=== PATIENT | female | born 1975 | race Caucasian/White ===

== ENCOUNTER 2016-08-06 13:45 | Outpatient (RCR) | payer MEDICAID, OTHER ==
[~2016-08-06 13:45] MED LIST: ALBUTEROL INH; Albuterol NEB; CONC18TA OR; EPIP0.3I IM; [UNRECOGNIZED DRUG - OTHER]
== END 2016-08-10 ==
LOC: M CR 13:45
PROVIDERS: ATTEND Internal Medicine Cardiovascular Disease
DX: Z95.5 Presence of coronary angioplasty implant and graft (principal)

== ENCOUNTER → 2016-09-10 | Outpatient (RCR) | payer MEDICAID, OTHER | LOC: M CR 08-27 15:27 | PROVIDERS: ATTEND Internal Medicine Cardiovascular Disease | DX: Z51.89 Encounter for other specified aftercare (principal); Z95.5 Presence of coronary angioplasty implant and graft ==

== ENCOUNTER 2016-09-22 10:00 | Outpatient (RCR) | payer OTHER | END 2016-10-10 | LOC: M CR 10:00 | PROVIDERS: ATTEND Internal Medicine Cardiovascular Disease | DX: Z98.61 Coronary angioplasty status (principal) ==

== ENCOUNTER 2016-10-11 08:28 | Outpatient (RCR) | payer OTHER | END 2016-11-10 | LOC: M CR 08:28 | PROVIDERS: ATTEND Internal Medicine Cardiovascular Disease | DX: Z98.61 Coronary angioplasty status (principal) ==

== ENCOUNTER 2017-02-04 08:47 | Outpatient (RCR) | payer OTHER | END 2017-02-10 | LOC: M CR 08:47 | PROVIDERS: ATTEND Internal Medicine Cardiovascular Disease | DX: Z95.1 Presence of aortocoronary bypass graft (principal) ==

== ENCOUNTER 2017-03-11 08:37 | Outpatient (RCR) | payer OTHER | END 2017-03-12 | LOC: M CR 08:37 | PROVIDERS: ATTEND Internal Medicine Cardiovascular Disease | DX: Z95.1 Presence of aortocoronary bypass graft (principal) ==

== ENCOUNTER 2017-04-13 08:45 | Outpatient (RCR) | payer OTHER ==
[2017-04-28] MEDS ORDERED: LISI2.5T3 (09:34)
[2017-04-28] MEDS ORDERED: ALPR0.25 (09:34)
[2017-04-28] MEDS ORDERED: GLIM1TAB (09:34)
[2017-04-28] MEDS ORDERED: DOCQ100C (09:34)
[2017-04-28] MEDS ORDERED: ONDA4TAB5 (09:34)
[2017-04-28] MEDS ORDERED: FERR32TA (09:34)
[2017-04-28] MEDS ORDERED: FAMO40TA3 (09:34)
[2017-04-28] MEDS ORDERED: GABA-282 (09:34)
[2017-04-28] MEDS ORDERED: ATOR40TA75 (09:34)
[2017-04-28] MEDS ORDERED: CLOP75TA2 (09:34)
[2017-04-28] MEDS ORDERED: MECL-68 (09:34)
[2017-04-28] MEDS ORDERED: METO1TAB87 (09:34)
[2017-04-28] MEDS ORDERED: BREO1INH3 INH (09:34)
[2017-04-28] MEDS ORDERED: FURO40TA2 (09:34)
[2017-04-28] MEDS ORDERED: NORCOTAB PO (11:05)
== END 2017-05-12 ==
LOC: M CR 08:45
PROVIDERS: ATTEND Internal Medicine Cardiovascular Disease
DX: Z95.1 Presence of aortocoronary bypass graft (principal)

== ENCOUNTER 2017-04-28 09:21 | Emergency (ER) | payer OTHER ==
[~2017-04-28] VITALS: Ht 154.9 cm; Wt 72.9 kg
[2017-04-28] MEDS ORDERED: GLIM1TAB (09:34)
[2017-04-28] MEDS ORDERED: BREO1INH3 INH (09:34)
[2017-04-28] MEDS ORDERED: ATOR40TA75 (09:34)
[2017-04-28] MEDS ORDERED: FURO40TA2 (09:34)
[2017-04-28] MEDS ORDERED: ONDA4TAB5 (09:34)
[2017-04-28] MEDS ORDERED: FERR32TA (09:34)
[2017-04-28] MEDS ORDERED: MECL-68 (09:34)
[2017-04-28] MEDS ORDERED: METO1TAB87 (09:34)
[2017-04-28] MEDS ORDERED: LISI2.5T3 (09:34)
[2017-04-28] MEDS ORDERED: GABA-282 (09:34)
[2017-04-28] MEDS ORDERED: CLOP75TA2 (09:34)
[2017-04-28] MEDS ORDERED: DOCQ100C (09:34)
[2017-04-28] MEDS ORDERED: FAMO40TA3 (09:34)
[2017-04-28] MEDS ORDERED: ALPR0.25 (09:34)
--- NOTE | 2017-04-28 10:56 | REP ---
Clinical: Trauma. Technique: AP, lateral, bilateral oblique views. Findings: The carpal bones, surrounding osseous structures, soft tissues, and joint spaces are normal. There is no evidence for acute fracture or dislocation. No subcutaneous emphysema or radiodense foreign body. Impression: Normal wrist series. No acute fracture or dislocation Signed by Nikolai Peralta MD 04/28/2017 10:45 A
--- NOTE | 2017-04-28 10:56 | REP ---
Clinical: Trauma. Technique: AP, lateral, bilateral oblique views left hand . Findings: The osseous structures and joint spaces are intact and normal. There is no evidence for acute fracture or dislocation. Surrounding soft tissues are unremarkable. No subcutaneous emphysema or radiodense foreign body. Impression: Normal left hand series . No acute fracture or dislocation. Signed by Nikolai Peralta MD 04/28/2017 10:47 A
--- NOTE | 2017-04-28 10:56 | REP ---
Clinical: Trauma . Technique: AP, lateral, bilateral oblique, and coned-down views. Findings: Alignment and lordosis is maintained. The vertebral bodies including transverse process and spinous processes are intact and normal. There is no evidence for acute fracture / compression injury or subluxation. No evidence for spondylolysis or spondylolisthesis. Impression: Normal, age-appropriate lumbosacral spine radiograph series. No acute fracture / compression injury or subluxation. Signed by Nikolai Peralta MD 04/28/2017 10:46 A
[2017-04-28] MEDS ORDERED: NORCOTAB PO (11:05)
[2017-04-28 11:16] VITALS: BP 116/68
== END 2017-04-28 11:10 | disposition home or self-care (01) ==
LOC: M ED 09:21
DX: S30.0XXA Contusion of lower back and pelvis, initial encounter (principal); S60.212A Contusion of left wrist, initial encounter; W10.8XXA Fall (on) (from) other stairs and steps, initial encounter; Y92.018 Other place in single-family (private) house as the place of occurrence of the external cause; Y93.89 Activity, other specified; Y99.8 Other external cause status; J45.909 Unspecified asthma, uncomplicated; F90.9 Attention-deficit hyperactivity disorder, unspecified type; I25.2 Old myocardial infarction; Z86.73 Personal history of transient ischemic attack (TIA), and cerebral infarction without residual deficits; Z79.899 Other long term (current) drug therapy; Z79.51 Long term (current) use of inhaled steroids; Z88.5 Allergy status to narcotic agent; Z88.8 Allergy status to other drugs, medicaments and biological substances; Z87.891 Personal history of nicotine dependence

== ENCOUNTER 2018-03-13 14:04 | Emergency (ER) | payer OTHER ==
[2018-03-13 16:05] LABS: BASO % 0.4 % (0.0-1.0); EOS # 0.4 10^3/uL (0.0-0.50); EOS % 4.5 % (0.0-3.0); HEMATOCRIT 40.6 % (36.0-47.0); HEMOGLOBIN 14.5 g/dl (12.0-15.5); IMMATURE GRANULOCYTE % 0.3 % (0-3.0); LYMPH # 2.1 10^3/uL (1.5-4.5); LYMPH % 23.1 % (24.0-44.0); MEAN CORPUSCULAR HEMOGLOBIN 30.3 pg (27.0-33.0); MEAN CORPUSCULAR HGB CONC 35.7 g/dl (32.0-36.5); MEAN CORPUSCULAR VOLUME 84.8 fl (80.0-96.0); MONO # 0.3 10^3/uL (0.0-0.8); MONO % 3.1 % (0.0-5.0); NEUTROPHILS # 6.2 10^3/uL (1.8-7.7); NEUTROPHILS % 68.6 % (36.0-66.0); PLATELET COUNT, AUTOMATED 202 10^3/uL (150-450); RED BLOOD COUNT 4.79 10^6/uL (4.00-5.40); RED CELL DISTRIBUTION WIDTH 11.8 % (11.5-14.5)
[2018-03-13 16:20] LABS: ESTIMATED AVERAGE GLUCOSE 220 MG/DL (60-110); HEMOGLOBIN A1c 9.3 %
[2018-03-13 16:42] LABS: ALBUMIN 3.8 GM/DL (3.2-5.2); ALBUMIN/GLOBULIN RATIO 1.27 (1.00-1.93); ALKALINE PHOSPHATASE 160 U/L (45-117); ALT/SGPT 17 U/L (12-78); ANION GAP 7 MEQ/L (8-16); AST/SGOT 9 U/L (7-37); BILIRUBIN,DIRECT 0.1 MG/DL (0.0-0.2); BILIRUBIN,TOTAL 0.4 MG/DL (0.2-1.0); BLOOD UREA NITROGEN 11 MG/DL (7-18); CALCIUM LEVEL 9.1 MG/DL (8.5-10.1); CARBON DIOXIDE LEVEL 33 MEQ/L (21-32); CHLORIDE LEVEL 97 MEQ/L (98-107); CK-MB VALUE MASS < 1.0 NG/ML (<3.6); CPK CREATINE PHOSPHOKINASE 37 U/L (26-192); CREATININE FOR GFR 0.86 MG/DL (0.55-1.30); FREE T4 0.99 NG/DL (0.76-1.46); GLOMERULAR FILTRATION RATE > 60.0 (>58); GLUCOSE, FASTING 321 MG/DL (70-100); SODIUM LEVEL 137 MEQ/L (136-145); TOTAL PROTEIN 6.8 GM/DL (6.4-8.2); TROPONIN I < 0.02 NG/ML (< 0.10)
[2018-03-13] MEDS: HumuLIN R (REGULAR) INSULIN (NovoLIN R) **100U/ML** PER UNIT IV (17:00)
[2018-03-13 17:56] LABS: KETONE, URINE AUTO RFX TRACE mg/dL (NEGATIVE); LEUKOCYTE ESTERASE UR AUTO RFX NEGATIVE (NEGATIVE); NITRITE, URINE AUTO RFX NEGATIVE (NEGATIVE); RBC, URINE AUTO RFX 2 /HPF (0-3); SPECIFIC GRAVITY UR AUTO RFX 1.023 (1.002-1.035); SQUAM EPITHELIAL CELL UR AURFX 1 /HPF (0-6); WBC, URINE AUTO RFX 0 /HPF (0-3)
[2018-03-13 18:57] LABS: BEDSIDE GLUCOSE 141 MG/DL (70-105)
[2018-03-17 15:54] LABS: BEDSIDE GLUCOSE 376 MG/DL (70-105)
== END 2018-03-13 19:34 | disposition home or self-care (01) ==
LOC: M ED 14:04
DX: E11.65 Type 2 diabetes mellitus with hyperglycemia (principal); I25.10 Atherosclerotic heart disease of native coronary artery without angina pectoris; J45.909 Unspecified asthma, uncomplicated; F90.9 Attention-deficit hyperactivity disorder, unspecified type; Z87.442 Personal history of urinary calculi; Z79.4 Long term (current) use of insulin; Z79.899 Other long term (current) drug therapy; Z88.6 Allergy status to analgesic agent; Z88.5 Allergy status to narcotic agent
CPT/HCPCS: 71046

== ENCOUNTER 2018-04-07 19:09 | Inpatient (IN) | payer OTHER ==
[2018-04-07 19:49] LABS: BASO % 0.3 % (0.0-1.0); EOS # 0.3 10^3/uL (0.0-0.50); EOS % 3.1 % (0.0-3.0); HEMATOCRIT 43.9 % (36.0-47.0); HEMOGLOBIN 15.6 g/dl (12.0-15.5); IMMATURE GRANULOCYTE % 0.3 % (0-3.0); LYMPH # 2.7 10^3/uL (1.5-4.5); MEAN CORPUSCULAR HEMOGLOBIN 29.6 pg (27.0-33.0); MEAN CORPUSCULAR HGB CONC 35.5 g/dl (32.0-36.5); MEAN CORPUSCULAR VOLUME 83.3 fl (80.0-96.0); MONO # 0.4 10^3/uL (0.0-0.8); NEUTROPHILS # 5.4 10^3/uL (1.8-7.7); NEUTROPHILS % 61.3 % (36.0-66.0); PLATELET COUNT, AUTOMATED 235 10^3/uL (150-450); RED BLOOD COUNT 5.27 10^6/uL (4.00-5.40); RED CELL DISTRIBUTION WIDTH 11.7 % (11.5-14.5); WHITE BLOOD COUNT 8.8 10^3/uL (4.0-10.0)
[2018-04-07 20:29] LABS: BEDSIDE GLUCOSE 420 MG/DL (70-105)
[2018-04-07 20:38] LABS: ALBUMIN 3.5 GM/DL (3.2-5.2); ALBUMIN/GLOBULIN RATIO 0.97 (1.00-1.93); ALKALINE PHOSPHATASE 180 U/L (45-117); ALT/SGPT 20 U/L (12-78); ANION GAP 9 MEQ/L (8-16); AST/SGOT 11 U/L (7-37); BILIRUBIN,DIRECT 0.1 MG/DL (0.0-0.2); BILIRUBIN,TOTAL 0.4 MG/DL (0.2-1.0); BLOOD UREA NITROGEN 10 MG/DL (7-18); C REACTIVE PROTEIN QUANTITATIV 1.07 MG/DL (0.00-0.30); CALCIUM LEVEL 8.6 MG/DL (8.5-10.1); CARBON DIOXIDE LEVEL 30 MEQ/L (21-32); CHLORIDE LEVEL 95 MEQ/L (98-107); CK-MB VALUE MASS < 1.0 NG/ML (<3.6); CPK CREATINE PHOSPHOKINASE 43 U/L (26-192); CREATININE FOR GFR 1.06 MG/DL (0.55-1.30); GLUCOSE, FASTING 396 MG/DL (70-100); MB/CK RELATIVE INDEX 2.33 (< OR =4); SODIUM LEVEL 134 MEQ/L (136-145); TOTAL PROTEIN 7.1 GM/DL (6.4-8.2); TROPONIN I < 0.02 NG/ML (< 0.10)
[2018-04-07 20:42] LABS: INR 0.98; PARTIAL THROMBOPLASTIN TIME 28.5 SECONDS (25.4-37.6)
[2018-04-07 21:12] LABS: ERYTHROCYTE SEDIMENTATION RATE 10 mm/hr (0-20)
[2018-04-07] MEDS: NS 1,000 ML IV (21:16)
[2018-04-07] MEDS: HumaLOG INSULIN (NovoLOG) PER UNIT SC (21:17)
[2018-04-07 22:57] LABS: BEDSIDE GLUCOSE 285 MG/DL (70-105)
[2018-04-08] MEDS: NS 1,000 ML IV (03:32)
[2018-04-08] MEDS: ALPRAZolam 0.25 MG TAB PO (03:45)
[2018-04-08] MEDS: ACETAMINOPHEN 325 MG TAB PO (03:46)
[2018-04-08 06:38] LABS: ALBUMIN 3.3 GM/DL (3.2-5.2); ALBUMIN/GLOBULIN RATIO 1.27 (1.00-1.93); ALKALINE PHOSPHATASE 146 U/L (45-117); ALT/SGPT 15 U/L (12-78); ANION GAP 7 MEQ/L (8-16); AST/SGOT 7 U/L (7-37); BILIRUBIN,TOTAL 0.4 MG/DL (0.2-1.0); BLOOD UREA NITROGEN 10 MG/DL (7-18); CALCIUM LEVEL 8.5 MG/DL (8.5-10.1); CARBON DIOXIDE LEVEL 30 MEQ/L (21-32); CHLORIDE LEVEL 104 MEQ/L (98-107); CREATININE FOR GFR 0.68 MG/DL (0.55-1.30); GLOMERULAR FILTRATION RATE > 60.0 (>58); GLUCOSE, FASTING 275 MG/DL (70-100); POTASSIUM SERUM 3.2 MEQ/L (3.5-5.1); SODIUM LEVEL 141 MEQ/L (136-145); TOTAL PROTEIN 5.9 GM/DL (6.4-8.2)
[2018-04-08] MEDS ORDERED: MECLIZINE 25 MG TABLET PO (09:00)
[2018-04-08] MEDS: DOCUSATE SODIUM 100 MG CAP PO (09:00)
[2018-04-08] MEDS: PROPARACAINE 0.5% OPHTH SOL 15ML OS (10:00)
[2018-04-08] MEDS: PHENYLEPHRINE 2.5% OPHTH SOL 2ML OS (10:00)
[2018-04-08] MEDS: TROPICAMIDE 1% OPHTH SOLN 2ML OS (10:00)
[2018-04-08] MEDS: CLOPIDOGREL 75 MG TAB PO (10:47)
[2018-04-08] MEDS: FAMOTIDINE 20 MG TAB PO (10:48)
[2018-04-08] MEDS: ATORVASTATIN 20 MG TAB PO (10:48)
[2018-04-08] MEDS: HumuLIN (NovoLIN)70/30 INSULIN INJ PER UNIT SQ ×2 (10:49→19:00)
[2018-04-08] MEDS: GABAPENTIN 300 MG CAP PO ×3 (10:49→20:10)
[2018-04-08] MEDS: POTASSIUM CHLORIDE 10 MEQ SR TABLET PO (10:51)
[2018-04-08] MEDS: ALBUTEROL SULFATE 2.5 MG/0.5 ML INH NEB SOLN NEB ×3 (11:34→23:43)
[2018-04-08] MEDS: LISINOPRIL *2.5 MG* TAB PO (12:10)
[2018-04-08 12:17] LABS: BEDSIDE GLUCOSE 417 MG/DL (70-105)
[2018-04-08 14:05] LABS: ESTIMATED AVERAGE GLUCOSE 229 MG/DL (60-110); HEMOGLOBIN A1c 9.6 %
[2018-04-08] MEDS: FIORICET TAB PO (14:30)
[2018-04-08] MEDS: HumaLOG INSULIN (NovoLOG) PER UNIT SC (14:31)
[2018-04-08 16:40] LABS: BEDSIDE GLUCOSE 283 MG/DL (70-105)
[2018-04-08] MEDS: ONDANSETRON 4MG/2ML VIAL (J2405) IV (17:34)
[2018-04-08] MEDS: MECLIZINE 12.5 MG TAB PO (17:34)
[2018-04-08] MEDS: MONTELUKAST 10 MG TAB PO (20:10)
[2018-04-09] MEDS: ALPRAZolam 0.25 MG TAB PO (00:04)
[2018-04-09 00:11] LABS: BEDSIDE GLUCOSE 255 MG/DL (70-105)
[2018-04-09] MEDS: FIORICET TAB PO ×2 (03:36→18:33)
[2018-04-09] MEDS: ALBUTEROL SULFATE 2.5 MG/0.5 ML INH NEB SOLN NEB ×3 (07:15→22:16)
[2018-04-09 07:22] LABS: BEDSIDE GLUCOSE 221 MG/DL (70-105)
[2018-04-09 07:53] LABS: BASO % 0.2 % (0.0-1.0); EOS # 0.2 10^3/uL (0.0-0.50); EOS % 3.2 % (0.0-3.0); HEMATOCRIT 36.6 % (36.0-47.0); IMMATURE GRANULOCYTE % 0.6 % (0-3.0); LYMPH # 1.9 10^3/uL (1.5-4.5); LYMPH % 30.2 % (24.0-44.0); MEAN CORPUSCULAR HEMOGLOBIN 29.7 pg (27.0-33.0); MEAN CORPUSCULAR HGB CONC 34.2 g/dl (32.0-36.5); MEAN CORPUSCULAR VOLUME 86.9 fl (80.0-96.0); MONO # 0.2 10^3/uL (0.0-0.8); MONO % 3.3 % (0.0-5.0); NEUTROPHILS # 3.9 10^3/uL (1.8-7.7); NEUTROPHILS % 62.5 % (36.0-66.0); PLATELET COUNT, AUTOMATED 160 10^3/uL (150-450); RED BLOOD COUNT 4.21 10^6/uL (4.00-5.40); RED CELL DISTRIBUTION WIDTH 11.9 % (11.5-14.5); WHITE BLOOD COUNT 6.3 10^3/uL (4.0-10.0)
[2018-04-09 08:05] LABS: HEMOGLOBIN 12.5 g/dl (12.0-15.5)
[2018-04-09 08:13] LABS: ANION GAP 7 MEQ/L (8-16); BLOOD UREA NITROGEN 8 MG/DL (7-18); CALCIUM LEVEL 8.6 MG/DL (8.5-10.1); CARBON DIOXIDE LEVEL 29 MEQ/L (21-32); CHLORIDE LEVEL 104 MEQ/L (98-107); CREATININE FOR GFR 0.75 MG/DL (0.55-1.30); GLOMERULAR FILTRATION RATE > 60.0 (>58); GLUCOSE, FASTING 248 MG/DL (70-100); POTASSIUM SERUM 3.8 MEQ/L (3.5-5.1); SODIUM LEVEL 140 MEQ/L (136-145)
[2018-04-09] MEDS: DOCUSATE SODIUM 100 MG CAP PO (09:00)
[2018-04-09] MEDS: HumuLIN (NovoLIN)70/30 INSULIN INJ PER UNIT SQ ×2 (09:43→18:29)
[2018-04-09] MEDS: ATORVASTATIN 20 MG TAB PO (09:43)
[2018-04-09] MEDS: LISINOPRIL *2.5 MG* TAB PO (09:45)
[2018-04-09] MEDS: MECLIZINE 25 MG TABLET PO ×2 (09:45→20:23)
[2018-04-09] MEDS: GABAPENTIN 300 MG CAP PO ×3 (09:45→20:23)
[2018-04-09] MEDS: FAMOTIDINE 20 MG TAB PO (09:45)
[2018-04-09] MEDS: TIOTROPIUM INHALER/CAPSULE (SPIRIVA) INH (11:16)
[2018-04-09] MEDS: SYMBICORT 80/4.5MCG INHALER 6GM INH ×2 (11:16→20:00)
[2018-04-09 12:03] LABS: BEDSIDE GLUCOSE 291 MG/DL (70-105)
[2018-04-09] MEDS ORDERED: PROHANCE 279.3MG/ML 15ML VIAL (A9576) As Ordered (13:52)
[2018-04-09 17:10] LABS: BEDSIDE GLUCOSE 217 MG/DL (70-105)
[2018-04-09] MEDS: ACETAMINOPHEN 325 MG TAB PO (18:34)
[2018-04-09] MEDS: MONTELUKAST 10 MG TAB PO (20:22)
[2018-04-10 05:56] LABS: BEDSIDE GLUCOSE 182 MG/DL (70-105)
[2018-04-10 07:02] LABS: BASO % 0.3 % (0.0-1.0); EOS # 0.2 10^3/uL (0.0-0.50); EOS % 2.7 % (0.0-3.0); HEMATOCRIT 33.1 % (36.0-47.0); HEMOGLOBIN 11.6 g/dl (12.0-15.5); IMMATURE GRANULOCYTE % 0.9 % (0-3.0); LYMPH # 1.8 10^3/uL (1.5-4.5); LYMPH % 25.2 % (24.0-44.0); MEAN CORPUSCULAR HEMOGLOBIN 29.8 pg (27.0-33.0); MEAN CORPUSCULAR VOLUME 85.1 fl (80.0-96.0); MONO # 0.3 10^3/uL (0.0-0.8); MONO % 3.5 % (0.0-5.0); NEUTROPHILS # 4.8 10^3/uL (1.8-7.7); NEUTROPHILS % 67.4 % (36.0-66.0); PLATELET COUNT, AUTOMATED 153 10^3/uL (150-450); RED BLOOD COUNT 3.89 10^6/uL (4.00-5.40); RED CELL DISTRIBUTION WIDTH 11.9 % (11.5-14.5); WHITE BLOOD COUNT 7.1 10^3/uL (4.0-10.0)
[2018-04-10 07:17] LABS: ANION GAP 6 MEQ/L (8-16); BLOOD UREA NITROGEN 12 MG/DL (7-18); CALCIUM LEVEL 8.7 MG/DL (8.5-10.1); CARBON DIOXIDE LEVEL 29 MEQ/L (21-32); CHLORIDE LEVEL 108 MEQ/L (98-107); CREATININE FOR GFR 0.64 MG/DL (0.55-1.30); GLOMERULAR FILTRATION RATE > 60.0 (>58); GLUCOSE, FASTING 166 MG/DL (70-100); POTASSIUM SERUM 3.8 MEQ/L (3.5-5.1); SODIUM LEVEL 143 MEQ/L (136-145)
[2018-04-10] MEDS: ALBUTEROL SULFATE 2.5 MG/0.5 ML INH NEB SOLN NEB ×2 (08:00→15:12)
[2018-04-10] MEDS: TIOTROPIUM INHALER/CAPSULE (SPIRIVA) INH (08:14)
[2018-04-10] MEDS: SYMBICORT 80/4.5MCG INHALER 6GM INH ×2 (08:14→20:10)
[2018-04-10] MEDS: FAMOTIDINE 20 MG TAB PO (09:01)
[2018-04-10] MEDS: DOCUSATE SODIUM 100 MG CAP PO (09:01)
[2018-04-10] MEDS: HumuLIN (NovoLIN)70/30 INSULIN INJ PER UNIT SQ ×2 (09:02→18:38)
[2018-04-10] MEDS: ATORVASTATIN 20 MG TAB PO (09:02)
[2018-04-10] MEDS: GABAPENTIN 300 MG CAP PO ×3 (09:02→20:33)
[2018-04-10] MEDS: MECLIZINE 25 MG TABLET PO ×2 (09:02→20:33)
[2018-04-10] MEDS: LISINOPRIL *2.5 MG* TAB PO (10:39)
[2018-04-10] MEDS: FIORICET TAB PO (10:42)
[2018-04-10 11:55] LABS: BEDSIDE GLUCOSE 226 MG/DL (70-105)
[2018-04-10 13:38] LABS: CSF TUBE# GLU TUBE 2; CSF TUBE# TP TUBE 2; GLUCOSE CSF 116 MG/DL (40-75); TOTAL PROTEIN,CSF 30 MG/DL (15-45)
[2018-04-10 13:41] LABS: CSF RBC < 2 10^3/uL (<2); CSF TUBE# CELL CNT TUBE 1; CSF WBC 1 /uL (0-10)
[2018-04-10 13:42] LABS: APPEARANCE, CSF CLEAR (CLEAR); COLOR, CSF COLORLESS (COLORLESS); CSF DIFF IF INDICATED? NO (NO)
[2018-04-10 16:56] LABS: BEDSIDE GLUCOSE 198 MG/DL (70-105)
[2018-04-10] MEDS: ACETAMINOPHEN 325 MG TAB PO (16:58)
[2018-04-10 17:53] LABS: BEDSIDE GLUCOSE 245 MG/DL (70-105)
[2018-04-10] MEDS: MONTELUKAST 10 MG TAB PO (20:33)
[2018-04-10] MEDS: NORTRIPTYLINE 25 MG CAP PO (20:33)
[2018-04-10 20:47] LABS: BEDSIDE GLUCOSE 261 MG/DL (70-105)
[2018-04-11] MEDS: ALPRAZolam 0.25 MG TAB PO (02:17)
[2018-04-11 07:09] LABS: BASO % 0.2 % (0.0-1.0); EOS # 0.2 10^3/uL (0.0-0.50); EOS % 2.6 % (0.0-3.0); HEMATOCRIT 32.4 % (36.0-47.0); HEMOGLOBIN 11.2 g/dl (12.0-15.5); IMMATURE GRANULOCYTE % 0.3 % (0-3.0); LYMPH # 1.7 10^3/uL (1.5-4.5); MEAN CORPUSCULAR HEMOGLOBIN 29.9 pg (27.0-33.0); MEAN CORPUSCULAR HGB CONC 34.6 g/dl (32.0-36.5); MEAN CORPUSCULAR VOLUME 86.4 fl (80.0-96.0); MONO # 0.2 10^3/uL (0.0-0.8); MONO % 3.3 % (0.0-5.0); NEUTROPHILS % 65.6 % (36.0-66.0); PLATELET COUNT, AUTOMATED 167 10^3/uL (150-450); RED BLOOD COUNT 3.75 10^6/uL (4.00-5.40); RED CELL DISTRIBUTION WIDTH 12.1 % (11.5-14.5); WHITE BLOOD COUNT 6.1 10^3/uL (4.0-10.0)
[2018-04-11 07:31] LABS: ANION GAP 7 MEQ/L (8-16); BLOOD UREA NITROGEN 11 MG/DL (7-18); CALCIUM LEVEL 8.2 MG/DL (8.5-10.1); CARBON DIOXIDE LEVEL 28 MEQ/L (21-32); CHLORIDE LEVEL 106 MEQ/L (98-107); CREATININE FOR GFR 0.69 MG/DL (0.55-1.30); GLOMERULAR FILTRATION RATE > 60.0 (>58); GLUCOSE, FASTING 132 MG/DL (70-100); POTASSIUM SERUM 3.7 MEQ/L (3.5-5.1); SODIUM LEVEL 141 MEQ/L (136-145)
[2018-04-11] MEDS: SYMBICORT 80/4.5MCG INHALER 6GM INH ×2 (07:32→20:59)
[2018-04-11] MEDS: TIOTROPIUM INHALER/CAPSULE (SPIRIVA) INH (07:34)
[2018-04-11] MEDS: ALBUTEROL SULFATE 2.5 MG/0.5 ML INH NEB SOLN NEB ×4 (07:35→23:21)
[2018-04-11] MEDS: DOCUSATE SODIUM 100 MG CAP PO (10:13)
[2018-04-11] MEDS: HumuLIN (NovoLIN)70/30 INSULIN INJ PER UNIT SQ ×2 (10:13→17:30)
[2018-04-11] MEDS: ATORVASTATIN 20 MG TAB PO (10:14)
[2018-04-11] MEDS: MECLIZINE 25 MG TABLET PO ×2 (10:14→21:21)
[2018-04-11] MEDS: FAMOTIDINE 20 MG TAB PO (10:14)
[2018-04-11] MEDS: GABAPENTIN 300 MG CAP PO ×3 (10:14→21:20)
[2018-04-11] MEDS: LISINOPRIL *2.5 MG* TAB PO (10:18)
[2018-04-11 12:00] LABS: BEDSIDE GLUCOSE 247 MG/DL (70-105)
[2018-04-11 17:12] LABS: BEDSIDE GLUCOSE 109 MG/DL (70-105)
[2018-04-11] MEDS: FIORICET TAB PO (17:24)
[2018-04-11 20:44] LABS: BEDSIDE GLUCOSE 227 MG/DL (70-105)
[2018-04-11] MEDS: MONTELUKAST 10 MG TAB PO (21:21)
[2018-04-11] MEDS: NORTRIPTYLINE 25 MG CAP PO (21:29)
[2018-04-12 00:08] LABS: BEDSIDE GLUCOSE 229 MG/DL (70-105)
[2018-04-12] MEDS: ONDANSETRON 4MG/2ML VIAL (J2405) IV ×2 (00:33→11:13)
[2018-04-12] MEDS: ACETAMINOPHEN 325 MG TAB PO ×3 (00:42→18:00)
[2018-04-12 06:58] LABS: BASO % 0.5 % (0.0-1.0); EOS # 0.3 10^3/uL (0.0-0.50); EOS % 4.4 % (0.0-3.0); HEMATOCRIT 33.7 % (36.0-47.0); HEMOGLOBIN 11.4 g/dl (12.0-15.5); IMMATURE GRANULOCYTE % 0.7 % (0-3.0); LYMPH # 1.7 10^3/uL (1.5-4.5); LYMPH % 27.2 % (24.0-44.0); MEAN CORPUSCULAR HEMOGLOBIN 29.8 pg (27.0-33.0); MEAN CORPUSCULAR HGB CONC 33.8 g/dl (32.0-36.5); MONO # 0.3 10^3/uL (0.0-0.8); MONO % 4.1 % (0.0-5.0); NEUTROPHILS # 3.8 10^3/uL (1.8-7.7); NEUTROPHILS % 63.1 % (36.0-66.0); PLATELET COUNT, AUTOMATED 158 10^3/uL (150-450); RED BLOOD COUNT 3.83 10^6/uL (4.00-5.40); RED CELL DISTRIBUTION WIDTH 12.1 % (11.5-14.5); WHITE BLOOD COUNT 6.1 10^3/uL (4.0-10.0)
[2018-04-12 07:22] LABS: ANION GAP 4 MEQ/L (8-16); BLOOD UREA NITROGEN 14 MG/DL (7-18); CALCIUM LEVEL 8.9 MG/DL (8.5-10.1); CARBON DIOXIDE LEVEL 28 MEQ/L (21-32); CHLORIDE LEVEL 107 MEQ/L (98-107); CREATININE FOR GFR 0.68 MG/DL (0.55-1.30); GLOMERULAR FILTRATION RATE > 60.0 (>58); GLUCOSE, FASTING 173 MG/DL (70-100); POTASSIUM SERUM 5.2 MEQ/L (3.5-5.1); SODIUM LEVEL 139 MEQ/L (136-145)
[2018-04-12] MEDS: ALBUTEROL SULFATE 2.5 MG/0.5 ML INH NEB SOLN NEB ×2 (08:00→14:46)
[2018-04-12] MEDS: SYMBICORT 80/4.5MCG INHALER 6GM INH ×2 (08:18→20:00)
[2018-04-12] MEDS: TIOTROPIUM INHALER/CAPSULE (SPIRIVA) INH (08:18)
[2018-04-12] MEDS: ATORVASTATIN 20 MG TAB PO (08:25)
[2018-04-12] MEDS: MECLIZINE 25 MG TABLET PO ×3 (08:25→21:30)
[2018-04-12] MEDS: GABAPENTIN 300 MG CAP PO ×3 (08:25→21:29)
[2018-04-12] MEDS: FAMOTIDINE 20 MG TAB PO (08:25)
[2018-04-12] MEDS: HumuLIN (NovoLIN)70/30 INSULIN INJ PER UNIT SQ ×2 (08:25→17:59)
[2018-04-12] MEDS: DOCUSATE SODIUM 100 MG CAP PO (08:26)
[2018-04-12] MEDS: LISINOPRIL *2.5 MG* TAB PO (11:07)
[2018-04-12 11:27] LABS: BEDSIDE GLUCOSE 209 MG/DL (70-105)
[2018-04-12 17:04] LABS: BEDSIDE GLUCOSE 220 MG/DL (70-105)
[2018-04-12 20:45] LABS: BEDSIDE GLUCOSE 154 MG/DL (70-105)
[2018-04-12] MEDS: NORTRIPTYLINE 25 MG CAP PO (21:30)
[2018-04-12] MEDS: MONTELUKAST 10 MG TAB PO (21:30)
[2018-04-13] MEDS: ALPRAZolam 0.25 MG TAB PO (00:08)
[2018-04-13 06:53] LABS: BASO % 0.3 % (0.0-1.0); EOS # 0.3 10^3/uL (0.0-0.50); EOS % 3.7 % (0.0-3.0); HEMATOCRIT 33.6 % (36.0-47.0); HEMOGLOBIN 11.1 g/dl (12.0-15.5); IMMATURE GRANULOCYTE % 0.7 % (0-3.0); LYMPH # 1.5 10^3/uL (1.5-4.5); LYMPH % 22.4 % (24.0-44.0); MEAN CORPUSCULAR VOLUME 90.8 fl (80.0-96.0); MONO # 0.3 10^3/uL (0.0-0.8); MONO % 3.8 % (0.0-5.0); NEUTROPHILS # 4.7 10^3/uL (1.8-7.7); NEUTROPHILS % 69.1 % (36.0-66.0); PLATELET COUNT, AUTOMATED 166 10^3/uL (150-450); RED CELL DISTRIBUTION WIDTH 12.4 % (11.5-14.5); WHITE BLOOD COUNT 6.8 10^3/uL (4.0-10.0)
[2018-04-13 07:19] LABS: ANION GAP 3 MEQ/L (8-16); BLOOD UREA NITROGEN 14 MG/DL (7-18); CALCIUM LEVEL 8.9 MG/DL (8.5-10.1); CARBON DIOXIDE LEVEL 31 MEQ/L (21-32); CHLORIDE LEVEL 104 MEQ/L (98-107); CREATININE FOR GFR 0.72 MG/DL (0.55-1.30); GLOMERULAR FILTRATION RATE > 60.0 (>58); GLUCOSE, FASTING 170 MG/DL (70-100); SODIUM LEVEL 138 MEQ/L (136-145)
[2018-04-13] MEDS: TIOTROPIUM INHALER/CAPSULE (SPIRIVA) INH (07:41)
[2018-04-13] MEDS: ALBUTEROL SULFATE 2.5 MG/0.5 ML INH NEB SOLN NEB ×3 (07:41→15:20)
[2018-04-13] MEDS: SYMBICORT 80/4.5MCG INHALER 6GM INH (07:41)
[2018-04-13] MEDS: FAMOTIDINE 20 MG TAB PO (08:42)
[2018-04-13] MEDS: ATORVASTATIN 20 MG TAB PO (08:42)
[2018-04-13] MEDS: DOCUSATE SODIUM 100 MG CAP PO (08:42)
[2018-04-13] MEDS: GABAPENTIN 300 MG CAP PO ×2 (08:42→16:20)
[2018-04-13] MEDS: HumuLIN (NovoLIN)70/30 INSULIN INJ PER UNIT SQ ×2 (08:42→17:30)
[2018-04-13] MEDS: MECLIZINE 25 MG TABLET PO ×2 (08:43→16:20)
[2018-04-13] MEDS: FIORICET TAB PO (11:10)
[2018-04-13 11:53] LABS: BEDSIDE GLUCOSE 228 MG/DL (70-105)
[2018-04-13 16:14] LABS: BEDSIDE GLUCOSE 214 MG/DL (70-105)
[2018-04-13] MEDS: ACETAMINOPHEN 325 MG TAB PO (16:21)
[2018-04-14 00:10] LABS: IMMUNOGLOBULIN G CSF 1.2 mg/dL (0.0-8.6)
[2018-04-16 14:09] LABS: ACETYLCHOLINE RCPTOR MODULATIN <12 % (0-20)
[2018-04-16 14:09] LABS: ACETYLCHOLINE RCPTOR BLOCK AB 16 % (0-25)
== END 2018-04-13 19:20 | disposition home or self-care (01) | DRG 82 ==
LOC: M MS4PR 04-09 11:40 → M PCU 04-08 03:13 → M ED 19:09 → M ED INP 23:30 → M MS5PR 04-10 16:09
PROVIDERS: Hospitalist
PROC: 009U3ZX Drainage of Spinal Canal, Percutaneous Approach, Diagnostic (ICD-10-PCS; principal; 2018-04-10)
DX: E11.39 Type 2 diabetes mellitus with other diabetic ophthalmic complication (principal); E23.6 Other disorders of pituitary gland; H49.02 Third [oculomotor] nerve palsy, left eye; J44.1 Chronic obstructive pulmonary disease with (acute) exacerbation; G43.109 Migraine with aura, not intractable, without status migrainosus; J06.9 Acute upper respiratory infection, unspecified; H53.2 Diplopia; H52.52 Paresis of accommodation; H02.432 Paralytic ptosis of left eyelid; I25.10 Atherosclerotic heart disease of native coronary artery without angina pectoris; F41.9 Anxiety disorder, unspecified; Z79.4 Long term (current) use of insulin; Z88.6 Allergy status to analgesic agent; Z86.73 Personal history of transient ischemic attack (TIA), and cerebral infarction without residual deficits; Z88.5 Allergy status to narcotic agent; Z79.899 Other long term (current) drug therapy; Z79.02 Long term (current) use of antithrombotics/antiplatelets; Z95.1 Presence of aortocoronary bypass graft; Z92.21 Personal history of antineoplastic chemotherapy; Z92.3 Personal history of irradiation; Z90.710 Acquired absence of both cervix and uterus; Z85.841 Personal history of malignant neoplasm of brain; Z85.41 Personal history of malignant neoplasm of cervix uteri; E11.40 Type 2 diabetes mellitus with diabetic neuropathy, unspecified; H47.13 Papilledema associated with retinal disorder

== ENCOUNTER → 2018-08-08 | Outpatient (CLI) | payer OTHER ==
[~2018-08-08] MED LIST changes: +ALPR0.25 PO; +AMOX500C; +ARNU1INH PO; +ATOR40TA75 PO; +BREO1INH3 INH; +BUTA-198 PO; +CLOP75TA2 PO; +DOCQ100C5; +DOCU100C16 PO; +EPIP0.3I2 IM; +FAMO40TA3 PO; +FERR32TA; +FURO40TA2 PO; +GABA-843 PO; +GLIM1TAB PO; +HUMU1INJ SQ; +LISI2.5T5 PO; +MECL-68 PO; +METO1TAB87 PO; +MONT10TA2 PO; +NORCOTAB PO; +NORT25CA2 PO; +OMEP20CA3 PO; +ONDA4TAB5
[2018-08-08 12:19] LABS: BLOOD UREA NITROGEN 10 MG/DL (7-18); CREATININE FOR GFR 0.82 MG/DL (0.55-1.30); GLOMERULAR FILTRATION RATE > 60.0 (>58)
== END ==
LOC: M LAB 11:09
PROVIDERS: ATTEND Psychiatry & Neurology Neurology
DX: N18.9 Chronic kidney disease, unspecified (principal)

== ENCOUNTER → 2018-08-31 | Outpatient (CLI) | payer OTHER ==
[2018-09-02 00:09] LABS: STRIATIONAL ANTIBODIES Negative (Neg:<1:40)
== END ==
LOC: M LAB 09:04
PROVIDERS: ATTEND Psychiatry & Neurology Neurology
DX: H02.402 Unspecified ptosis of left eyelid (principal)

== ENCOUNTER 2018-09-05 11:06 | Outpatient (RCR) | payer OTHER | END 2018-09-10 | LOC: M PT 11:06 | PROVIDERS: ATTEND Internal Medicine | DX: Z51.89 Encounter for other specified aftercare (principal); G45.9 Transient cerebral ischemic attack, unspecified; Z86.73 Personal history of transient ischemic attack (TIA), and cerebral infarction without residual deficits ==

== ENCOUNTER 2018-09-19 10:30 | Outpatient (RCR) | payer OTHER ==
[~2018-09-19 10:30] MED LIST changes: +HYDR-3715 PO; +LISI-1046 PO; -LISI2.5T5 PO; -NORCOTAB PO
== END 2018-10-10 ==
LOC: M OT 10:30
PROVIDERS: ATTEND Internal Medicine
DX: G45.9 Transient cerebral ischemic attack, unspecified (principal); Z86.73 Personal history of transient ischemic attack (TIA), and cerebral infarction without residual deficits

== ENCOUNTER 2018-10-31 20:26 | Emergency (ER) | payer OTHER ==
[~2018-10-31] VITALS: Ht 154.9 cm; Wt 67.7 kg
[2018-10-31 21:05] LABS: BASO % 0.3 % (0.0-1.0); EOS # 0.2 10^3/uL (0.0-0.50); EOS % 1.9 % (0.0-3.0); HEMATOCRIT 41.7 % (36.0-47.0); HEMOGLOBIN 14.7 g/dl (12.0-15.5); LYMPH # 1.6 10^3/uL (1.5-4.5); LYMPH % 16.8 % (24.0-44.0); MEAN CORPUSCULAR HGB CONC 35.3 g/dl (32.0-36.5); MEAN CORPUSCULAR VOLUME 85.1 fl (80.0-96.0); MONO # 0.4 10^3/uL (0.0-0.8); MONO % 4.1 % (0.0-5.0); NEUTROPHILS # 7.3 10^3/uL (1.8-7.7); NEUTROPHILS % 76.5 % (36.0-66.0); PLATELET COUNT, AUTOMATED 181 10^3/uL (150-450); WHITE BLOOD COUNT 9.5 10^3/uL (4.0-10.0)
[2018-10-31 21:41] LABS: BLOOD UREA NITROGEN 8 MG/DL (7-18); CALCIUM LEVEL 8.9 MG/DL (8.5-10.1); CARBON DIOXIDE LEVEL 30 MEQ/L (21-32); CHLORIDE LEVEL 94 MEQ/L (98-107); CK-MB VALUE MASS < 1.0 NG/ML (<3.6); CPK CREATINE PHOSPHOKINASE 27 U/L (26-192); CREATININE FOR GFR 0.93 MG/DL (0.55-1.30); GLOMERULAR FILTRATION RATE > 60.0 (>58); GLUCOSE, FASTING 381 MG/DL (70-100); POTASSIUM SERUM 3.6 MEQ/L (3.5-5.1); SODIUM LEVEL 132 MEQ/L (136-145); TROPONIN I < 0.02 NG/ML (< 0.10)
[2018-10-31] MEDS ORDERED: methylPREDNISolone INJ 125 MG/2 ML VIAL (J2930) IV ONE (22:15)
[2018-10-31] MEDS: IPRATROPIUM 0.5MG/ALBUTEROL 2.5MG INH SOL UD 3ML (DUONEB)(J7620) NEB SCH ×2 (22:40→22:56)
[2018-11-01] MEDS: IPRATROPIUM 0.5MG/ALBUTEROL 2.5MG INH SOL UD 3ML (DUONEB)(J7620) NEB SCH ×3 (00:05→01:55)
[2018-11-01 01:30] VITALS: BP 100/53
[2018-11-01 01:38] VITALS: O2SAT 96
[2018-11-01] MEDS ORDERED: PRED20TA PO (02:27)
[2018-11-01] MEDS ORDERED: ZITHTAB PO (02:27)
--- NOTE | 2018-11-01 06:15 | ECGEPIP ---
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
== END 2018-11-01 02:41 | disposition home or self-care (01) ==
LOC: M ED 20:26
DX: J44.1 Chronic obstructive pulmonary disease with (acute) exacerbation (principal)
CPT/HCPCS: 36600; 71046; 80048; 82550; 82553; 83605; 85025; 93005; 94640; 96374; 99285; J2930

== ENCOUNTER → 2019-01-08 | Outpatient (REF) | payer OTHER, MEDICAID ==
[~2019-01-08] MED LIST changes: -OMEP20CA3 PO; +OMEP20CA4 PO; +PRED20TA PO; +ZITHTAB PO
[2019-01-08 16:03] LABS: BASO # 0.1 10^3/uL (0.0-0.2); BASO % 0.7 % (0.0-1.0); EOS # 0.3 10^3/uL (0.0-0.50); EOS % 3.2 % (0.0-3.0); HEMATOCRIT 44.4 % (36.0-47.0); HEMOGLOBIN 15.5 g/dl (12.0-15.5); LYMPH # 1.9 10^3/uL (1.5-4.5); LYMPH % 22.3 % (24.0-44.0); MEAN CORPUSCULAR HEMOGLOBIN 29.4 pg (27.0-33.0); MEAN CORPUSCULAR HGB CONC 34.9 g/dl (32.0-36.5); MEAN CORPUSCULAR VOLUME 84.3 fl (80.0-96.0); MONO # 0.3 10^3/uL (0.0-0.8); MONO % 3.4 % (0.0-5.0); PLATELET COUNT, AUTOMATED 230 10^3/uL (150-450); RED BLOOD COUNT 5.27 10^6/uL (4.00-5.40); WHITE BLOOD COUNT 8.5 10^3/uL (4.0-10.0)
[2019-01-08 16:04] LABS: APPEARANCE, URINE CLEAR (CLEAR); BACTERIA, URINE AUTO NEGATIVE (NEGATIVE); BILIRUBIN, URINE AUTO NEGATIVE (NEGATIVE); BLOOD, URINE BLOOD NEGATIVE (NEGATIVE); COLOR, URINE YELLOW (YELLOW); GLUCOSE, URINE (UA) AUTO 3+ mg/dL (NEGATIVE); KETONE, URINE AUTO NEGATIVE (NEGATIVE); LEUKOCYTE ESTERASE, URINE AUTO NEGATIVE (NEGATIVE); NITRITE, URINE AUTO NEGATIVE (NEGATIVE); PROTEIN, URINE AUTO NEGATIVE (NEGATIVE); RBC, URINE AUTO 1 /HPF (0-3); SPECIFIC GRAVITY URINE AUTO 1.017 (1.002-1.035); SQUAMOUS EPITHELIAL CELL UR AU 4 /HPF (0-6); UROBILINOGEN, URINE AUTO 0.2 mg/dL (0.0-2.0); WBC, URINE AUTO 0 /HPF (0-3)
[2019-01-08 16:23] LABS: ERYTHROCYTE SEDIMENTATION RATE 6 mm/hr (0-20)
[2019-01-08 16:36] LABS: HEMOGLOBIN A1c 12.3 %
[2019-01-08 16:43] LABS: ALBUMIN 4.2 GM/DL (3.2-5.2); ALT/SGPT 14 U/L (12-78); BILIRUBIN,TOTAL 0.5 MG/DL (0.2-1.0); BLOOD UREA NITROGEN 9 MG/DL (7-18); CARBON DIOXIDE LEVEL 32 MEQ/L (21-32); CHLORIDE LEVEL 97 MEQ/L (98-107); CHOLESTEROL LEVEL 238 MG/DL (<200); COMPLEMENT C3 153 MG/DL (90-180); COMPLEMENT C4 31 MG/DL (10-40); CREATININE FOR GFR 0.88 MG/DL (0.55-1.30); FREE T4 1.01 NG/DL (0.76-1.46); GLOMERULAR FILTRATION RATE > 60.0 (>58); GLUCOSE, FASTING 359 MG/DL (70-100); HDL CHOLESTEROL 35 MG/DL (>40); NON-HDL-C 203 MG/DL; POTASSIUM SERUM 2.8 MEQ/L (3.5-5.1); RHEUMATOID FACTOR QUANT < 10.0 IU/ML (<15.0); SODIUM LEVEL 136 MEQ/L (136-145); TOTAL 25(OH) VITAMIN D 20.1 NG/ML (30.0-100.0); TOTAL PROTEIN 7.6 GM/DL (6.4-8.2); TRIGLYCERIDES LEVEL 471 MG/DL (<150); URIC ACID 4.5 MG/DL (2.6-6.0)
[2019-01-16 00:07] LABS: ANTI DS-DNA AB <1:10 titer (.); ANTINUCLEAR ANTIBODIES DIRECT Negative (Negative); CYCLIC CITRULLINATED PEPTIDE 4 units (0-19); HLA-B27 Negative (.); Lyme Disease IgG/IgM Antibodie <0.91 ISR (0.00-0.90); Lyme Disease IgM Ab Quantitati <0.80 index (0.00-0.79); RNP ANTIBODIES <0.2 AI (0.0-0.9); SJOGREN'S ANTI SS-A <0.2 AI (0.0-0.9); SJOGREN'S ANTI SS-B <0.2 AI (0.0-0.9); SMITH ANTIBODIES <0.2 AI (0.0-0.9)
== END ==
LOC: M LAB REF 15:22
PROVIDERS: ATTEND Family Medicine
DX: Z13.228 Encounter for screening for other metabolic disorders (principal); M25.50 Pain in unspecified joint

== ENCOUNTER → 2019-01-12 | Outpatient (REF) | payer OTHER, MEDICAID ==
[~2019-01-12] MED LIST changes: +METO25TA4; +VITA500045 PO
[2019-01-12 17:56] LABS: BLOOD UREA NITROGEN 6 MG/DL (7-18); CALCIUM LEVEL 9.3 MG/DL (8.5-10.1); CARBON DIOXIDE LEVEL 31 MEQ/L (21-32); CHLORIDE LEVEL 99 MEQ/L (98-107); CREATININE FOR GFR 0.78 MG/DL (0.55-1.30); GLOMERULAR FILTRATION RATE > 60.0 (>58); GLUCOSE, FASTING 358 MG/DL (70-100); POTASSIUM SERUM 3.8 MEQ/L (3.5-5.1); SODIUM LEVEL 137 MEQ/L (136-145)
== END ==
LOC: M LAB REF 16:59
PROVIDERS: ATTEND Family Medicine
DX: E87.6 Hypokalemia (principal)

== ENCOUNTER 2019-01-21 19:39 | Emergency (ER) | payer MEDICAID, OTHER ==
[~2019-01-21] VITALS: Ht 154.9 cm; Wt 65.0 kg
[~2019-01-21 19:39] MED LIST changes: -METO25TA4; -VITA500045 PO
[2019-01-21] MEDS ORDERED: METO25TA4 (19:46)
[2019-01-21] MEDS ORDERED: VITA500045 PO (19:46)
[2019-01-21 20:14] VITALS: BP 123/58
[2019-01-21 20:22] LABS: BASO # 0.1 10^3/uL (0.0-0.2); BASO % 0.5 % (0.0-1.0); EOS # 0.2 10^3/uL (0.0-0.50); EOS % 2.1 % (0.0-3.0); HEMATOCRIT 45.1 % (36.0-47.0); HEMOGLOBIN 15.5 g/dl (12.0-15.5); LYMPH # 2.1 10^3/uL (1.5-4.5); LYMPH % 20.4 % (24.0-44.0); MEAN CORPUSCULAR HEMOGLOBIN 30.2 pg (27.0-33.0); MEAN CORPUSCULAR HGB CONC 34.4 g/dl (32.0-36.5); MEAN CORPUSCULAR VOLUME 87.9 fl (80.0-96.0); MONO # 0.3 10^3/uL (0.0-0.8); MONO % 3.3 % (0.0-5.0); NEUTROPHILS # 7.6 10^3/uL (1.8-7.7); NEUTROPHILS % 73.3 % (36.0-66.0); PLATELET COUNT, AUTOMATED 207 10^3/uL (150-450); RED BLOOD COUNT 5.13 10^6/uL (4.00-5.40); WHITE BLOOD COUNT 10.4 10^3/uL (4.0-10.0)
[2019-01-21 20:35] LABS: INR 1.01
--- NOTE | 2019-01-21 20:57 | REPVR ---
EXAM: US Duplex Left Lower Extremity Veins, Limited EXAM DATE/TIME: 01/21/2019 8:26 PM CLINICAL HISTORY: 43 years old, female; Pain; Leg, upper; Left TECHNIQUE: Imaging protocol: Real-time Duplex ultrasound of the Left Lower Extremity with 2-D mann scale, color Doppler flow and spectral waveform analysis with image documentation. Limited exam focused on the left lower extremity veins. COMPARISON: No relevant prior studies available. FINDINGS: Left deep veins: Unremarkable. The common femoral, femoral and popliteal veins are patent without thrombus. Normal compressibility, augmentation response and Doppler waveforms. Left superficial veins: Unremarkable. Saphenofemoral junction is patent without thrombus. Soft tissues: Unremarkable. IMPRESSION: No sonographic evidence of deep vein thrombosis. Electronically signed by: Eze Prado On 01/21/2019 20:57:22 PM
[2019-01-21 21:00] LABS: BLOOD UREA NITROGEN 10 MG/DL (7-18); CARBON DIOXIDE LEVEL 30 MEQ/L (21-32); CHLORIDE LEVEL 95 MEQ/L (98-107); CPK CREATINE PHOSPHOKINASE 26 U/L (26-192); CREATININE FOR GFR 0.98 MG/DL (0.55-1.30); FREE THYROXINE INDEX 2.6 % (1.3-4.8); GLOMERULAR FILTRATION RATE > 60.0 (>58); GLUCOSE, FASTING 467 MG/DL (70-100); POTASSIUM SERUM 3.7 MEQ/L (3.5-5.1); SODIUM LEVEL 134 MEQ/L (136-145); T UPTAKE 29 % (30-39)
[2019-01-21] MEDS ORDERED: HumaLOG INSULIN (NovoLOG) PER UNIT SC STA (21:52)
[2019-01-21] MEDS ORDERED: ACETAMINOPHEN 500 MG TAB PO ONE (22:45)
== END 2019-01-21 23:43 | disposition home or self-care (01) ==
LOC: M ED 19:39
DX: E11.65 Type 2 diabetes mellitus with hyperglycemia (principal); I25.10 Atherosclerotic heart disease of native coronary artery without angina pectoris; E11.9 Type 2 diabetes mellitus without complications; I10 Essential (primary) hypertension; J44.9 Chronic obstructive pulmonary disease, unspecified; K21.9 Gastro-esophageal reflux disease without esophagitis; G43.909 Migraine, unspecified, not intractable, without status migrainosus; H49.02 Third [oculomotor] nerve palsy, left eye; E23.6 Other disorders of pituitary gland; E78.5 Hyperlipidemia, unspecified; Z72.0 Tobacco use; Z79.4 Long term (current) use of insulin; Z79.899 Other long term (current) drug therapy; Z88.8 Allergy status to other drugs, medicaments and biological substances; Z88.5 Allergy status to narcotic agent

== ENCOUNTER → 2019-02-09 | Outpatient (CLI) | payer OTHER ==
[~2019-02-09] MED LIST changes: +METO25TA4; +VITA500045 PO
[2019-02-09 11:26] LABS: BASO % 0.4 % (0.0-1.0); EOS # 0.2 10^3/uL (0.0-0.50); EOS % 3.1 % (0.0-3.0); HEMATOCRIT 45.2 % (36.0-47.0); HEMOGLOBIN 15.6 g/dl (12.0-15.5); LYMPH # 1.9 10^3/uL (1.5-4.5); LYMPH % 25.2 % (24.0-44.0); MEAN CORPUSCULAR HEMOGLOBIN 30.5 pg (27.0-33.0); MEAN CORPUSCULAR HGB CONC 34.5 g/dl (32.0-36.5); MEAN CORPUSCULAR VOLUME 88.3 fl (80.0-96.0); MONO # 0.3 10^3/uL (0.0-0.8); MONO % 3.6 % (0.0-5.0); NEUTROPHILS % 67.2 % (36.0-66.0); PLATELET COUNT, AUTOMATED 203 10^3/uL (150-450); RED BLOOD COUNT 5.12 10^6/uL (4.00-5.40); WHITE BLOOD COUNT 7.5 10^3/uL (4.0-10.0)
[2019-02-09 11:28] LABS: APPEARANCE, URINE CLEAR (CLEAR); BACTERIA, URINE AUTO 1+ (NEGATIVE); BILIRUBIN, URINE AUTO NEGATIVE (NEGATIVE); BLOOD, URINE BLOOD NEGATIVE (NEGATIVE); COLOR, URINE YELLOW (YELLOW); GLUCOSE, URINE (UA) AUTO 3+ mg/dL (NEGATIVE); KETONE, URINE AUTO NEGATIVE (NEGATIVE); LEUKOCYTE ESTERASE, URINE AUTO 1+ (NEGATIVE); NITRITE, URINE AUTO NEGATIVE (NEGATIVE); PROTEIN, URINE AUTO NEGATIVE (NEGATIVE); RBC, URINE AUTO 7 /HPF (0-3); SPECIFIC GRAVITY URINE AUTO 1.029 (1.002-1.035); SQUAMOUS EPITHELIAL CELL UR AU 0 /HPF (0-6); UROBILINOGEN, URINE AUTO 0.2 mg/dL (0.0-2.0); WBC, URINE AUTO 15 /HPF (0-3)
[2019-02-09 12:01] LABS: ALT/SGPT 12 U/L (12-78); AMYLASE 23 U/L (25-115); BILIRUBIN,TOTAL 0.4 MG/DL (0.2-1.0); BLOOD UREA NITROGEN 8 MG/DL (7-18); CALCIUM LEVEL 9.3 MG/DL (8.5-10.1); CARBON DIOXIDE LEVEL 29 MEQ/L (21-32); CHLORIDE LEVEL 101 MEQ/L (98-107); CREATININE FOR GFR 0.75 MG/DL (0.55-1.30); GLOMERULAR FILTRATION RATE > 60.0 (>58); GLUCOSE, FASTING 346 MG/DL (70-100); LIPASE 195 U/L (73-393); POTASSIUM SERUM 4.8 MEQ/L (3.5-5.1); SODIUM LEVEL 138 MEQ/L (136-145); TOTAL PROTEIN 7.2 GM/DL (6.4-8.2)
== END ==
LOC: M LAB 09:39
PROVIDERS: ATTEND Family Medicine
DX: E87.6 Hypokalemia (principal); R10.9 Unspecified abdominal pain

== ENCOUNTER 2019-03-12 11:24 | Emergency (ER) | payer OTHER ==
[~2019-03-12] VITALS: Ht 154.9 cm; Wt 65.1 kg
[2019-03-12 12:14] LABS: BASO # 0.1 10^3/uL (0.0-0.2); BASO % 0.5 % (0.0-1.0); EOS # 0.3 10^3/uL (0.0-0.5); EOS % 3.5 % (0.0-3.0); HEMATOCRIT 43.1 % (36.0-47.0); HEMOGLOBIN 15.1 g/dl (12.0-15.5); LYMPH % 20.8 % (24.0-44.0); MEAN CORPUSCULAR VOLUME 85.5 fl (80.0-96.0); MONO # 0.3 10^3/uL (0.0-0.8); MONO % 2.9 % (0.0-5.0); NEUTROPHILS # 6.8 10^3/uL (1.5-8.5); NEUTROPHILS % 71.7 % (36.0-66.0); PLATELET COUNT, AUTOMATED 202 10^3/uL (150-450); RED BLOOD COUNT 5.04 10^6/uL (4.00-5.40); WHITE BLOOD COUNT 9.5 10^3/uL (4.0-10.0)
[2019-03-12 12:55] LABS: ALBUMIN 3.9 GM/DL (3.2-5.2); ALT/SGPT 11 U/L (12-78); BILIRUBIN,DIRECT 0.1 MG/DL (0.0-0.2); BILIRUBIN,TOTAL 0.5 MG/DL (0.2-1.0); BLOOD UREA NITROGEN 6 MG/DL (7-18); CALCIUM LEVEL 8.8 MG/DL (8.5-10.1); CARBON DIOXIDE LEVEL 36 MEQ/L (21-32); CHLORIDE LEVEL 93 MEQ/L (98-107); CK-MB VALUE MASS < 1.0 NG/ML (<3.6); CPK CREATINE PHOSPHOKINASE 23 U/L (26-192); GLOMERULAR FILTRATION RATE > 60.0 (>58); GLUCOSE, FASTING 234 MG/DL (70-100); LIPASE 120 U/L (73-393); MB/CK RELATIVE INDEX 4.35 (< OR =4); NT-PRO BNP 234 PG/ML (<125); POTASSIUM SERUM 2.8 MEQ/L (3.5-5.1); SODIUM LEVEL 135 MEQ/L (136-145); TOTAL PROTEIN 7.3 GM/DL (6.4-8.2); TROPONIN I < 0.02 NG/ML (< 0.10)
[2019-03-12] MEDS ORDERED: POTASSIUM CHLORIDE 10 MEQ SR TABLET PO ONE ×2 (13:00→14:30)
[2019-03-12] MEDS ORDERED: TRUL10IN INJ (13:05)
--- NOTE | 2019-03-12 13:20 | REP ---
CHEST, SINGLE VIEW: There is no evidence of acute infiltrate. No pleural effusion is seen. The heart is normal in size. The mediastinal silhouette is unremarkable. The visualized osseous structures are intact. IMPRESSION: No acute pulmonary disease. Electronically Signed by Reginaldo Boyd MD 03/12/2019 04:36 P
[2019-03-12] MEDS ORDERED: ISOVUE-370 76% 100ML VIAL (Q9967) As Ordered ONE (13:39)
--- NOTE | 2019-03-12 15:13 | REP ---
REASON FOR EXAM: Pleuritic chest pain. PRIORS: None. CONTRAST: 100 mL Isovue 370. There is excellent visualization of the pulmonary arterial vasculature. There are no focal filling defects present that would be considered consistent with pulmonary emboli. The thoracic aorta is within normal limits. There are no pleural or pericardial effusions. There is no mediastinal or hilar adenopathy. The imaged upper abdomen is within normal limits. The imaged osseous structures are within normal limits. Evaluation of the lung mckeon show no abnormal nodules, mass, or opacities. IMPRESSION: CT findings are within normal limits. Electronically Signed by Stone Tomas DO 03/13/2019 09:40 A
[2019-03-12 20:11] LABS: CK-MB VALUE MASS < 1.0 NG/ML (<3.6); CPK CREATINE PHOSPHOKINASE 23 U/L (26-192); MB/CK RELATIVE INDEX 4.35 (< OR =4); TROPONIN I < 0.02 NG/ML (< 0.10)
--- NOTE | 2019-03-12 20:58 | ECGEPIP ---
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
--- NOTE | 2019-03-12 21:06 | ECGEPIP ---
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
[2019-03-12 22:30] VITALS: BP 105/60
== END 2019-03-12 22:30 | disposition home or self-care (01) ==
LOC: M ED 11:24
DX: M54.9 Dorsalgia, unspecified (principal); I44.4 Left anterior fascicular block; I51.9 Heart disease, unspecified; E11.9 Type 2 diabetes mellitus without complications; I10 Essential (primary) hypertension; I25.2 Old myocardial infarction; Z86.73 Personal history of transient ischemic attack (TIA), and cerebral infarction without residual deficits; J44.9 Chronic obstructive pulmonary disease, unspecified; Z95.1 Presence of aortocoronary bypass graft; Z95.5 Presence of coronary angioplasty implant and graft; Z87.891 Personal history of nicotine dependence; Z82.49 Family history of ischemic heart disease and other diseases of the circulatory system; Z79.4 Long term (current) use of insulin; Z79.899 Other long term (current) drug therapy; Z88.8 Allergy status to other drugs, medicaments and biological substances; Z88.5 Allergy status to narcotic agent
CPT/HCPCS: 71045; 71275; 80048; 80076; 82550; 82553; 83690; 83880; 84443; 85025; 93005; 93041; 94760; 99285; Q9967

== ENCOUNTER → 2019-04-06 | Outpatient (REF) | payer OTHER ==
[~2019-04-06] MED LIST changes: -GLIM1TAB PO; +GLIM1TAB2 PO; +TRUL10IN INJ
[2019-04-06 13:50] LABS: ALBUMIN 3.9 GM/DL (3.2-5.2); ALT/SGPT 15 U/L (12-78); BILIRUBIN,TOTAL 0.6 MG/DL (0.2-1.0); BLOOD UREA NITROGEN 7 MG/DL (7-18); CALCIUM LEVEL 9.5 MG/DL (8.5-10.1); CARBON DIOXIDE LEVEL 34 MEQ/L (21-32); CHLORIDE LEVEL 96 MEQ/L (98-107); CHOLESTEROL LEVEL 241 MG/DL (<200); CHOLESTEROL RISK RATIO 6.513 (<5); CREATININE FOR GFR 0.75 MG/DL (0.55-1.30); GLOMERULAR FILTRATION RATE > 60.0 (>58); GLUCOSE, FASTING 353 MG/DL (70-100); HDL CHOLESTEROL 37 MG/DL (>40); NON-HDL-C 204 MG/DL; POTASSIUM SERUM 4.1 MEQ/L (3.5-5.1); SODIUM LEVEL 136 MEQ/L (136-145); TOTAL PROTEIN 7.3 GM/DL (6.4-8.2); TRIGLYCERIDES LEVEL 427 MG/DL (<150)
[2019-04-06 13:55] LABS: HEMOGLOBIN A1c 10.7 %
== END ==
LOC: M LAB REF 13:14
PROVIDERS: ATTEND Family Medicine
DX: E11.9 Type 2 diabetes mellitus without complications (principal)

== ENCOUNTER → 2019-05-17 | Outpatient (CLI) | payer OTHER ==
[~2019-05-17] MED LIST changes: +OMEP-172 PO; -OMEP20CA4 PO
--- NOTE | 2019-05-17 12:49 | REP ---
DIAGNOSTIC MAMMOGRAM LEFT BREAST WITH LEFT BREAST ULTRASOUND: COMPARISON: Baseline mammogram 04/16/2019 from [place], [place]. FAMILY HISTORY: History of breast cancer in maternal grandmother. [facility] lifetime risk of breast cancer 11.5%. Multiple spot compression views of the left breast demonstrate mild scattered fibroglandular tissue. There is a focal 5 mm irregular and ill-defined nodular opacity laterally in the left breast in the posterior third. There are a few tiny calcifications within it. Real-time sonographic evaluation of the lateral left breast performed. The only abnormality is a subcutaneous cyst at 4-o'clock position measuring 5 mm in diameter. This does not definitely correspond to the mammographic abnormality. It is anechoic with enhanced through transmission. IMPRESSION: BIRADS 4: BI-RADS/ACR category 4 mammogram. Suspicious Abnormality - biopsy should be considered. ACR 4 suspicious. Ill-defined 5 mm nodule posterolateral left breast with tiny internal calcifications. This cannot definitely be identified sonographically. Recommend stereotactic biopsy. This mammogram was interpreted with the aid of an FDA-approved computer-aided detection system. The patient states that she or he has not had a clinical breast exam in over a year. Patient letter being requested is M4. Electronically Signed by Reginaldo Boyd MD 05/17/2019 12:52 P
== END ==
LOC: M RAD 10:29
PROVIDERS: ATTEND Family Medicine
DX: R92.8 Other abnormal and inconclusive findings on diagnostic imaging of breast (principal); N63.20 Unspecified lump in the left breast, unspecified quadrant; N60.02 Solitary cyst of left breast

== ENCOUNTER 2019-06-11 11:21 | Emergency (ER) | payer OTHER ==
[~2019-06-11] VITALS: Ht 154.9 cm; Wt 64.3 kg
[2019-06-11 11:57] LABS: BASO % 0.6 % (0.0-1.0); EOS # 0.2 10^3/uL (0.0-0.5); EOS % 2.7 % (0.0-3.0); HEMATOCRIT 43.5 % (36.0-47.0); HEMOGLOBIN 14.7 g/dl (12.0-15.5); LYMPH # 1.7 10^3/uL (1.5-5.0); LYMPH % 23.4 % (24.0-44.0); MEAN CORPUSCULAR HEMOGLOBIN 29.9 pg (27.0-33.0); MEAN CORPUSCULAR HGB CONC 33.8 g/dl (32.0-36.5); MEAN CORPUSCULAR VOLUME 88.4 fl (80.0-96.0); MONO # 0.2 10^3/uL (0.0-0.8); MONO % 3.1 % (0.0-5.0); NEUTROPHILS # 4.9 10^3/uL (1.5-8.5); NEUTROPHILS % 69.8 % (36.0-66.0); PLATELET COUNT, AUTOMATED 196 10^3/uL (150-450); RED BLOOD COUNT 4.92 10^6/uL (4.00-5.40); WHITE BLOOD COUNT 7.1 10^3/uL (4.0-10.0)
[2019-06-11] MEDS ORDERED: NS 1,000 ML IV ONE (12:00)
[2019-06-11] MEDS ORDERED: ONDANSETRON 4MG/2ML VIAL (J2405) IV ONE (12:00)
[2019-06-11] MEDS ORDERED: NITROGLYCERIN 0.4 MG SUBL TABLET SL PRN (12:00)
[2019-06-11] MEDS: fentaNYL 100 MCG/2 ML INJECTION (J3010) IV PRN ×4 (12:03→14:43)
[2019-06-11 12:10] LABS: INR 0.97; PROTHROMBIN TIME 12.6 SECONDS (11.8-14.0)
--- NOTE | 2019-06-11 12:12 | REP ---
Clinical: Chest pain . Comparison: 03/12/2019 . Findings: The mediastinum and cardiac silhouette are stable and within normal limits for portable technique. The lung mckeon are clear without acute consolidation, effusion, or pneumothorax. Skeletal structures are intact. Impression: No acute cardiopulmonary process appreciated. Electronically Signed by Nikolai Peralta MD 06/11/2019 12:04 P
[2019-06-11] MEDS ORDERED: ISOVUE-370 76% 100ML VIAL (Q9967) As Ordered ONE (12:32)
[2019-06-11 12:59] LABS: ALBUMIN 3.5 GM/DL (3.2-5.2); ALT/SGPT 15 U/L (12-78); BILIRUBIN,DIRECT < 0.1 MG/DL (0.0-0.2); BILIRUBIN,TOTAL 0.5 MG/DL (0.2-1.0); BLOOD UREA NITROGEN 8 MG/DL (7-18); CALCIUM LEVEL 8.9 MG/DL (8.5-10.1); CARBON DIOXIDE LEVEL 29 MEQ/L (21-32); CHLORIDE LEVEL 95 MEQ/L (98-107); CK-MB VALUE MASS < 1.0 NG/ML (<3.6); CPK CREATINE PHOSPHOKINASE 41 U/L (26-192); CREATININE FOR GFR 0.91 MG/DL (0.55-1.30); FREE T4 0.92 NG/DL (0.76-1.46); GLOMERULAR FILTRATION RATE > 60.0 (>58); GLUCOSE, FASTING 529 MG/DL (70-100); LIPASE 206 U/L (73-393); MB/CK RELATIVE INDEX 2.44 (< OR =4); NT-PRO BNP 151 PG/ML (<125); POTASSIUM SERUM 3.9 MEQ/L (3.5-5.1); SODIUM LEVEL 134 MEQ/L (136-145); TOTAL PROTEIN 6.6 GM/DL (6.4-8.2); TROPONIN I < 0.02 NG/ML (< 0.10)
--- NOTE | 2019-06-11 13:12 | REP ---
Clinical: Excruciating chest pain. Rule out aortic dissection. Technique: Axial contrast enhanced images from the thoracic inlet to the mid abdomen at the level of the aortic bifurcation using arterial angiographic technique including multiplanar MIP re-formations and 3-D rendered images of the aorta. 100 ml Isovue 370 intravenous contrast material administered without complication. Findings: The thoracic and abdominal aorta is normal in appearance and caliber. There is no evidence for aortic aneurysm or dissection. No atherosclerotic changes are appreciated. Major branch vessels of the thoracic and abdominal aorta are patent and normal. Bilateral lung mckeon are well-aerated and clear. No consolidation. No effusion. No pneumothorax. Tracheobronchial tree is patent. No significant axillary, hilar, or mediastinal adenopathy. The mediastinum demonstrates normal heart and pericardium. Surrounding musculoskeletal structures are intact. Limited upper abdomen demonstrates normal bilateral adrenal glands. Musculoskeletal structures are normal. Impression: 1. Normal thoracoabdominal aorta without aneurysm or dissection. No atherosclerotic changes. 2. No acute mediastinal or pleuroparenchymal process. Electronically Signed by Nikolai Peralta MD 06/11/2019 01:04 P
[2019-06-11] MEDS ORDERED: HumuLIN R (REGULAR) INSULIN (NovoLIN R) **100U/ML** PER UNIT IV ONE (13:45)
[2019-06-11] MEDS ORDERED: HEPARIN SOD (PORCINE) 5000 UNITS/ML VIAL IV ONE (14:15)
[2019-06-11 15:00] VITALS: BP 123/71
[2019-06-11] MEDS ORDERED: HEPARIN DRIP 25,000 UNITS in IV 1 EA IV SCH (15:00)
--- NOTE | 2019-06-11 19:21 | ECGEPIP ---
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
== END 2019-06-11 15:04 | disposition short-term general hospital (02) ==
LOC: M ED 11:21
DX: I20.0 Unstable angina (principal); I21.09 ST elevation (STEMI) myocardial infarction involving other coronary artery of anterior wall; I25.2 Old myocardial infarction; E10.9 Type 1 diabetes mellitus without complications; Z86.73 Personal history of transient ischemic attack (TIA), and cerebral infarction without residual deficits; Z95.1 Presence of aortocoronary bypass graft; Z95.5 Presence of coronary angioplasty implant and graft; Z87.891 Personal history of nicotine dependence; Z79.4 Long term (current) use of insulin; Z79.899 Other long term (current) drug therapy; Z88.8 Allergy status to other drugs, medicaments and biological substances; Z88.5 Allergy status to narcotic agent
CPT/HCPCS: 71045; 71275; 80047; 80048; 80076; 82550; 82553; 83690; 83880; 84439; 84443; 85025; 85610; 85730; 93005; 93041; 94760; 96361; 96374; 96375; 96376; 99285; J2405; J3010; Q9967

== ENCOUNTER → 2019-07-27 | Outpatient (REF) | payer OTHER, MEDICAID ==
[~2019-07-27] MED LIST changes: -GLIM1TAB2 PO; +GLIM1TAB4 PO; -MECL-68 PO; +MECL1TAB31 PO; -MONT10TA2 PO; +MONT10TA4 PO; -OMEP-172 PO; +OMEP1CAP73 PO; +ONDA-83; -ONDA4TAB5
[2019-07-27 18:31] LABS: CREATININE, URINE 33.7 MG/DL; MALB URINE SIEMENS 80.8 MG/L; MAU/CREAT RATIO 239.7 MCG/MG (0.0-30.0)
== END ==
LOC: M LAB REF 16:26
PROVIDERS: ATTEND Physician Assistant
DX: E11.65 Type 2 diabetes mellitus with hyperglycemia (principal)

== ENCOUNTER → 2019-07-27 | Outpatient (REF) | payer OTHER, MEDICAID ==
[2019-07-27 17:34] LABS: HEMOGLOBIN A1c 11.8 %
== END ==
LOC: M LAB REF 16:21
PROVIDERS: ATTEND Physician Assistant
DX: E11.65 Type 2 diabetes mellitus with hyperglycemia (principal)

== ENCOUNTER → 2019-08-28 | Outpatient (CLI) | payer MEDICAID, OTHER ==
--- NOTE | 2019-08-28 15:48 | REP ---
LEFT BREAST ULTRASOUND: Real-time sonographic evaluation of the left breast performed. Reportedly there are palpable abnormalities of the left breast at 12 to 1 o'clock, 4 cm from the nipple and at 6 o'clock 2 cm from the nipple. No sonographic abnormality is seen in these regions. A superficial marking clip is seen in the left breast in the 5 o'clock position at the site of a prior sterotactic biopsy 06/20/2019. Adjacent to this is a small cyst 4 mm in diameter. Another small cyst is seen at 6 o'clock 1 cm from the nipple measuring approximately 2 mm in diameter. IMPRESSION: ACR 2 benign. No cystic or solid nodules seen at the site of the reported palpable abnormalities at 12 and 6 o'clock as discussed above. A tiny cyst is seen at 5 o'clock near the site of the prior stereotactic biopsy and also at 6 o'clock near the nipple.
== END ==
LOC: M WHC 12:59
PROVIDERS: ATTEND Surgery
DX: N60.02 Solitary cyst of left breast (principal)

== ENCOUNTER → 2019-10-10 | Outpatient (CLI) | payer OTHER ==
[~2019-10-10] MED LIST changes: +ADME100I2 SC; +AMAR1TAB PO; +ATOR80TA59 PO; +BASA100I SC; +D-101000 PO; +FISH1000 PO; +GLIM2TAB29 PO; +K-TA10TA2 PO; -METO25TA4; +METO25TA4 PO; +NAPR500T6 PO; +PAME10CA PO; +TRUL0.5I SC
[2019-10-10 12:49] LABS: BASO % 0.4 % (0.0-1.0); EOS # 0.5 10^3/uL (0.0-0.5); EOS % 5.6 % (0.0-3.0); HEMOGLOBIN 14.6 g/dl (12.0-15.5); LYMPH % 24.4 % (24.0-44.0); MEAN CORPUSCULAR HEMOGLOBIN 28.9 pg (27.0-33.0); MEAN CORPUSCULAR VOLUME 85.1 fl (80.0-96.0); MONO # 0.2 10^3/uL (0.0-0.8); NEUTROPHILS # 5.4 10^3/uL (1.5-8.5); NEUTROPHILS % 66.1 % (36.0-66.0); PLATELET COUNT, AUTOMATED 249 10^3/uL (150-450); RED BLOOD COUNT 5.05 10^6/uL (4.00-5.40); WHITE BLOOD COUNT 8.1 10^3/uL (4.0-10.0)
[2019-10-10 13:10] LABS: ALBUMIN 3.7 GM/DL (3.2-5.2); ALT/SGPT 19 U/L (12-78); BILIRUBIN,TOTAL 0.5 MG/DL (0.2-1.0); BLOOD UREA NITROGEN 4 MG/DL (7-18); CALCIUM LEVEL 8.9 MG/DL (8.5-10.1); CARBON DIOXIDE LEVEL 33 MEQ/L (21-32); CHLORIDE LEVEL 99 MEQ/L (98-107); CREATININE FOR GFR 0.66 MG/DL (0.55-1.30); GLOMERULAR FILTRATION RATE > 60.0 (>58); GLUCOSE, FASTING 255 MG/DL (70-100); POTASSIUM SERUM 3.3 MEQ/L (3.5-5.1); SODIUM LEVEL 137 MEQ/L (136-145); TOTAL PROTEIN 6.9 GM/DL (6.4-8.2)
[2019-10-10 13:18] LABS: HEMOGLOBIN A1c 11.5 %
--- NOTE | 2019-10-11 02:33 | REP ---
Clinical: Chronic obstructive pulmonary disease . Comparison: 03/12/2019 . Technique: PA and lateral. Findings: The mediastinum and cardiac silhouette are normal. The lung mckeon are clear and without acute consolidation, effusion, or pneumothorax. The skeletal structures are intact and normal. Impression: 1. No acute cardiopulmonary process. Electronically Signed by Nikolai Peralta MD 10/11/2019 02:24 A
== END ==
LOC: M LAB 11:44
PROVIDERS: ATTEND Physician Assistant
DX: Z01.818 Encounter for other preprocedural examination (principal); I25.2 Old myocardial infarction; Z86.73 Personal history of transient ischemic attack (TIA), and cerebral infarction without residual deficits; E11.65 Type 2 diabetes mellitus with hyperglycemia; J44.9 Chronic obstructive pulmonary disease, unspecified

== ENCOUNTER → 2019-10-13 | Outpatient (CLI) | payer OTHER | LOC: M LABSMTC 08:50 | PROVIDERS: ATTEND Anesthesiology | DX: Z01.818 Encounter for other preprocedural examination (principal); Z11.59 Encounter for screening for other viral diseases ==

== ENCOUNTER → 2020-03-26 | Outpatient (REF) | payer OTHER, MEDICAID ==
[~2020-03-26] MED LIST changes: -LISI-1046 PO; +LISI2.5T2 PO
[2020-03-26 12:50] LABS: ALBUMIN 3.7 GM/DL (3.2-5.2); ALT/SGPT 15 U/L (12-78); BILIRUBIN,TOTAL 0.7 MG/DL (0.2-1.0); BLOOD UREA NITROGEN 8 MG/DL (7-18); CALCIUM LEVEL 9.3 MG/DL (8.5-10.1); CARBON DIOXIDE LEVEL 32 MEQ/L (21-32); CHLORIDE LEVEL 96 MEQ/L (98-107); CREATININE FOR GFR 0.75 MG/DL (0.55-1.30); GLOMERULAR FILTRATION RATE > 60.0 (>58); GLUCOSE, FASTING 337 MG/DL (70-100); POTASSIUM SERUM 4.3 MEQ/L (3.5-5.1); SODIUM LEVEL 134 MEQ/L (136-145)
[2020-03-26 12:58] LABS: TOTAL 25(OH) VITAMIN D 25.7 NG/ML (30.0-100.0)
[2020-03-26 13:04] LABS: HEMOGLOBIN A1c 10.8 %
== END ==
LOC: M LAB REF 11:17
PROVIDERS: ATTEND Physician Assistant
DX: E11.40 Type 2 diabetes mellitus with diabetic neuropathy, unspecified (principal)

== ENCOUNTER → 2020-04-01 | Outpatient (CLI) | payer OTHER ==
--- NOTE | 2020-04-01 12:19 | REP ---
INDICATION: LT BREAST CALCIFICATION. COMPARISON: Mammograms 09/12/2019, 06/20/2019, ultrasounds 08/28/2019, 05/17/2019. TECHNIQUE: ML and CC views of the left breast are performed. Focused ultrasound left breast performed at the site of the prior attempted biopsies laterally. FINDINGS: Prior mammogram 05/17/2019 showed a 5 mm nodule containing microcalcifications. Attempts were made to biopsy this nodule 06/20/2019 and 09/12/2019, which were unsuccessful. Today's mammographic views show that the 5 mm nodule is no longer present. In addition, the previously noted calcifications are now much more dispersed at the site of the nodule and attempted biopsies. There appears to be some mild post biopsy scarring at that location. Ultrasound at the site of the attempted biopsies shows no underlying cystic or solid nodule. IMPRESSION: BIRADS/ACR category 2, benign. The previously noted 5 mm nodule laterally left breast is no longer visualized. In addition, previously noted tiny calcifications associated with the nodule are now dispersed at that site and not clustered, as noted before. The findings are most compatible with a subcentimeter cyst with wall calcifications which has now ruptured, and is therefore benign. RECOMMENDATION: Recommend follow-up bilateral screening mammogram May 2020. <Electronically signed by Reginaldo Boyd > 04/01/20 [id number]
== END ==
LOC: M WHCPRO 10:08
PROVIDERS: ATTEND Surgery
DX: N63.20 Unspecified lump in the left breast, unspecified quadrant (principal); Z53.8 Procedure and treatment not carried out for other reasons

== ENCOUNTER → 2020-09-22 | Outpatient (REF) | payer OTHER ==
[~2020-09-22] MED LIST changes: +GABA-282 PO; -GABA-843 PO; +MONT10TA10 PO; -MONT10TA4 PO
[2020-09-22 14:08] LABS: BASO % 0.4 % (0.0-1.0); EOS # 0.3 10^3/uL (0.0-0.5); EOS % 4.1 % (0.0-3.0); HEMATOCRIT 47.2 % (36.0-47.0); HEMOGLOBIN 15.3 g/dl (12.0-15.5); LYMPH # 1.9 10^3/uL (1.5-5.0); LYMPH % 23.8 % (24.0-44.0); MEAN CORPUSCULAR HGB CONC 32.4 g/dl (32.0-36.5); MEAN CORPUSCULAR VOLUME 89.6 fl (80.0-96.0); MONO # 0.4 10^3/uL (0.0-0.8); MONO % 4.3 % (2.0-8.0); NEUTROPHILS # 5.4 10^3/uL (1.5-8.5); NEUTROPHILS % 66.9 % (36.0-66.0); PLATELET COUNT, AUTOMATED 237 10^3/uL (150-450); RED BLOOD COUNT 5.27 10^6/uL (4.00-5.40); WHITE BLOOD COUNT 8.1 10^3/uL (4.0-10.0)
[2020-09-22 14:24] LABS: HEMOGLOBIN A1c 10.8 %
[2020-09-22 14:53] LABS: ALBUMIN 3.8 GM/DL (3.2-5.2); ALT/SGPT 16 U/L (12-78); BILIRUBIN,TOTAL 0.5 MG/DL (0.2-1.0); BLOOD UREA NITROGEN 9 MG/DL (7-18); CALCIUM LEVEL 9.1 MG/DL (8.5-10.1); CARBON DIOXIDE LEVEL 32 MEQ/L (21-32); CHLORIDE LEVEL 100 MEQ/L (98-107); CHOLESTEROL LEVEL 174 MG/DL (<200); CHOLESTEROL RISK RATIO 5.272 (<5); CREATININE FOR GFR 0.62 MG/DL (0.55-1.30); GLOMERULAR FILTRATION RATE > 60.0 (>58); GLUCOSE, FASTING 319 MG/DL (70-100); HDL CHOLESTEROL 33 MG/DL (>40); LDL CHOLESTEROL 68 MG/DL (<100); MAGNESIUM LEVEL 2.3 MG/DL (1.8-2.4); NON-HDL-C 141 MG/DL; POTASSIUM SERUM 4.5 MEQ/L (3.5-5.1); SODIUM LEVEL 138 MEQ/L (136-145); TOTAL 25(OH) VITAMIN D 21.7 NG/ML (30.0-100.0); TOTAL PROTEIN 6.8 GM/DL (6.4-8.2); TRIGLYCERIDES LEVEL 364 MG/DL (<150)
[2020-09-22 15:04] LABS: NT-PRO BNP 121 PG/ML (<125)
== END ==
LOC: M LAB REF 12:25
PROVIDERS: ATTEND Pediatrics
DX: I10 Essential (primary) hypertension (principal); E11.65 Type 2 diabetes mellitus with hyperglycemia; E55.9 Vitamin D deficiency, unspecified; I25.2 Old myocardial infarction; E83.42 Hypomagnesemia

== ENCOUNTER 2020-11-29 16:03 | Inpatient (IN) | payer OTHER ==
[~2020-11-29] VITALS: Ht 154.9 cm; Wt 64.5 kg
[2020-11-29 17:17] LABS: BASO # 0.1 10^3/uL (0.0-0.2); BASO % 0.5 % (0.0-1.0); EOS # 0.4 10^3/uL (0.0-0.5); EOS % 3.9 % (0.0-3.0); HEMATOCRIT 48.1 % (36.0-47.0); HEMOGLOBIN 16.8 g/dl (12.0-15.5); LYMPH # 2.8 10^3/uL (1.5-5.0); LYMPH % 30.2 % (24.0-44.0); MEAN CORPUSCULAR HEMOGLOBIN 29.7 pg (27.0-33.0); MEAN CORPUSCULAR HGB CONC 34.9 g/dl (32.0-36.5); MONO # 0.4 10^3/uL (0.0-0.8); MONO % 4.3 % (2.0-8.0); NEUTROPHILS # 5.6 10^3/uL (1.5-8.5); NEUTROPHILS % 60.6 % (36.0-66.0); PLATELET COUNT, AUTOMATED 209 10^3/uL (150-450); RED BLOOD COUNT 5.66 10^6/uL (4.00-5.40); WHITE BLOOD COUNT 9.3 10^3/uL (4.0-10.0)
[2020-11-29] MEDS ORDERED: NS 1,000 ML IV ONE ×2 (17:40→18:20)
--- NOTE | 2020-11-29 18:19 | REPVR ---
PROCEDURE INFORMATION: Exam: CT Head Without Contrast Exam date and time: 11/29/2020 5:38 PM Age: 45 years old Clinical indication: Other: Presyncope TECHNIQUE: Imaging protocol: Computed tomography of the head without contrast. Radiation optimization: All CT scans at this facility use at least one of these dose optimization techniques: automated exposure control; mA and/or kV adjustment per patient size (includes targeted exams where dose is matched to clinical indication); or iterative reconstruction. COMPARISON: MRI-Brain W/O FOLL BY WITH 04/09/2018 1:16 PM FINDINGS: Brain: No intracranial mass, mass effect or midline shift. No acute intracranial hemorrhage. No CT evidence of acute cortical infarct. Ventricles, cisterns, and sulci are normal in size for age. Paranasal sinuses: Imaged paranasal sinuses are normally aerated. Mastoid air cells: Mastoid air cells and middle ear structures are normally aerated. Orbital cavity: Imaged orbits are unremarkable. Bones/joints: No calvarial fracture or destructive process. Soft tissues: No focal extracranial soft tissue swelling. IMPRESSION: No acute or concerning focal intracranial abnormality. Electronically signed by: Luis Ortega On 11/29/2020 18:19:33 PM
[2020-11-29] MEDS ORDERED: COMBIVENT RESPIMAT 100-20MCG INHALER 4GM INH ONE (18:25)
[2020-11-29] MEDS ORDERED: cefTRIAXone SOD 2 GM in D5W MINI-BAG PLUS 50 ML IV ONE (18:25)
[2020-11-29] MEDS ORDERED: dexameTHASONE 20MG/5ML VIAL (J1100 PER 1MG) IV ONE (18:25)
[2020-11-29 20:46] LABS: ALBUMIN 3.9 GM/DL (3.2-5.2); ALT/SGPT 23 U/L (12-78); BILIRUBIN,TOTAL 0.4 MG/DL (0.2-1.0); BLOOD UREA NITROGEN 20 MG/DL (7-18); CALCIUM LEVEL 9.2 MG/DL (8.5-10.1); CARBON DIOXIDE LEVEL 31 MEQ/L (21-32); CHLORIDE LEVEL 95 MEQ/L (98-107); CK-MB VALUE MASS 1.5 NG/ML (<3.6); CPK CREATINE PHOSPHOKINASE 30 U/L (26-192); CREATININE FOR GFR 1.12 MG/DL (0.55-1.30); ETHYL ALCOHOL (ETHANOL) < 0.003 % (0.000-0.010); GLOMERULAR FILTRATION RATE 55.5 (>58); GLUCOSE, FASTING 319 MG/DL (70-100); POTASSIUM SERUM 3.7 MEQ/L (3.5-5.1); SODIUM LEVEL 132 MEQ/L (136-145); TOTAL PROTEIN 7.1 GM/DL (6.4-8.2); TROPONIN I < 0.02 NG/ML (< 0.10)
[2020-11-29] MEDS: LEVEMIR (INSULIN DETEMIR) 1 UNITS/0.01ML SC SCH (21:00)
[2020-11-29 21:17] LABS: CK-MB VALUE MASS < 1.0 NG/ML (<3.6); CPK CREATINE PHOSPHOKINASE 30 U/L (26-192); MB/CK RELATIVE INDEX 3.33 (< OR =4); TROPONIN I < 0.02 NG/ML (< 0.10)
[2020-11-29 21:48] LABS: RSV AMPLIFICATION NEGATIVE (NEGATIVE)
[2020-11-29] MEDS ORDERED: ISOVUE-370 76% 100ML VIAL As Ordered ONE (22:20)
--- NOTE | 2020-11-29 22:44 | REPVR ---
PROCEDURE INFORMATION: Exam: CTA Chest With Contrast Exam date and time: 11/29/2020 10:33 PM Age: 45 years old Clinical indication: Other: Syncope TECHNIQUE: Imaging protocol: Computed tomographic angiography of the chest with contrast. 3D rendering (Not supervised by radiologist): MIP and/or 3D reconstructed images were created by the technologist. Radiation optimization: All CT scans at this facility use at least one of these dose optimization techniques: automated exposure control; mA and/or kV adjustment per patient size (includes targeted exams where dose is matched to clinical indication); or iterative reconstruction. Contrast material: ISOVUE 370; Contrast volume: 100 ml; Contrast route: INTRAVENOUS (IV); COMPARISON: CT ANGIO CHEST 06/11/2019 12:37 PM FINDINGS: Pulmonary arteries: No focal pulmonary artery filling defect to suggest acute pulmonary embolus. Aorta: No thoracic aortic aneurysm or dissection. Lungs: Pulmonary vascular/interstitial pattern does not suggest active pulmonary edema. No suspicious lung mass or air space process. No central endobronchial lesion. Pleural spaces: No pleural effusion or pneumothorax. Heart: No overt cardiac enlargement or abnormal volume of pericardial fluid. Mediastinal space: Esophagus appears to be distended, with ingested intraluminal material within the mid esophagus. I do not see evidence of an obstructing mass. Lymph nodes: Small, nonspecific mediastinal nodes are present. Bones/joints: Bony structures show no acute fracture or destructive process. Soft tissues: No asymmetric abnormality of the extrathoracic soft tissues. IMPRESSION: 1. No evidence of acute pulmonary embolus or aortic dissection. 2. Mild distention of the midthoracic esophagus, with intraluminal ingested material, suggesting possible esophageal dysmotility. I do not see evidence of an esophageal obstructing mass but clinical correlation is advised Electronically signed by: Luis Ortega On 11/29/2020 22:43:49 PM
--- NOTE | 2020-11-29 22:48 | REPVR ---
PROCEDURE INFORMATION: Exam: CTA Abdomen and Pelvis With Contrast Exam date and time: 11/29/2020 10:33 PM Age: 45 years old Clinical indication: Other: Syncope TECHNIQUE: Imaging protocol: Computed tomographic angiography of the abdomen and pelvis with contrast material. 3D rendering (Not supervised by radiologist): MIP and/or 3D reconstructed images were created by the technologist. Radiation optimization: All CT scans at this facility use at least one of these dose optimization techniques: automated exposure control; mA and/or kV adjustment per patient size (includes targeted exams where dose is matched to clinical indication); or iterative reconstruction. Contrast material: ISOVUE 370; Contrast volume: 100 ml; Contrast route: INTRAVENOUS (IV); COMPARISON: CT ANGIO CHEST 06/11/2019 12:37 PM FINDINGS: Aorta: Abdominal aorta is normal in luminal caliber with normal enhancement. No aneurysm or dissection. Celiac trunk and mesenteric arteries: Celiac trunk, SMA, HEATHER and major mesenteric branches show normal luminal caliber and enhancement. Renal arteries: Right and left main renal arteries and accessory right renal arteries demonstrate normal luminal caliber and enhancement. Right iliac arteries: Right iliac arteries demonstrate normal luminal caliber and enhancement through the inguinal ligament level. Left iliac arteries: Left iliac arteries demonstrate normal luminal caliber and enhancement through the inguinal ligament level. Liver: Liver appears normal with no focal abnormality. Gallbladder and bile ducts: Gallbladder is present and shows no evidence of gallstone. Pancreas: Pancreas appears normal. No focal mass or peripancreatic inflammation. Spleen: Spleen appears homogeneous without focal mass. Adrenal glands: Adrenal glands are normal in appearance. Kidneys and ureters: Kidneys appear normal, with no stone, solid mass or hydronephrosis. Stomach and bowel: No evidence of small bowel obstruction. No evidence of acute diverticulitis. Appendix: Normal caliber appendix is identified, with no adjacent inflammation. Intraperitoneal space: No pneumoperitoneum. Lymph nodes: No enlarged lymph nodes. Urinary bladder: Urinary bladder is distended. Reproductive: Uterus is surgically absent. Bones/joints: Bony structures are normal except for lumbar spine degenerative disc changes. Soft tissues: No effacement of normal fat planes in the ischiorectal fossa. No concerning focal abnormality of the extra-abdominal and pelvic soft tissues. IMPRESSION: 1. Unremarkable CT angiographic study of the abdominal aorta and its major branch vessels. No aneurysm, dissection or significant atherosclerotic stenosis. 2. No concerning solid organ or bowel abnormality in the arterial phase. 3. Urinary bladder distention, which may be voluntary. Electronically signed by: Luis Ortega On 11/29/2020 22:48:35 PM
[2020-11-30] MEDS ORDERED: MOM 30ML SUSPENSION UDC PO PRN
[2020-11-30] MEDS ORDERED: MAALOX 30 ML SUSP *UDC PO PRN
[2020-11-30] MEDS ORDERED: METO1TAB7 PO (00:26)
[2020-11-30] MEDS ORDERED: GABA-283 PO (00:26)
[2020-11-30] MEDS ORDERED: OMEP-221 PO (00:26)
[2020-11-30] MEDS ORDERED: D3 S1CAP PO (00:26)
[2020-11-30] MEDS ORDERED: PAME25CA PO (00:39)
[2020-11-30] MEDS ORDERED: CETI-24 PO (00:43)
[2020-11-30] MEDS ORDERED: ENTR1TAB PO (00:43)
[2020-11-30] MEDS ORDERED: FAMO40TA3 PO (00:43)
[2020-11-30] MEDS ORDERED: INSU100I28 SC (00:43)
[2020-11-30] MEDS ORDERED: BUDE10.2 PO (00:43)
[2020-11-30] MEDS ORDERED: INVO100T PO (00:43)
[2020-11-30] MEDS ORDERED: MED REC COMMENT (00:49)
[2020-11-30] MEDS ORDERED: GLUCAGON INJ 1MG VIAL SC PRN (00:55)
[2020-11-30] MEDS ORDERED: NS 1,000 ML IV SCH (00:55)
[2020-11-30] MEDS ORDERED: DEXTROSE 50% 50 ML SYRINGE IV PRN (00:55)
[2020-11-30] MEDS ORDERED: GLUCOSE 4GM CHEW TABLET PO PRN (00:55)
[2020-11-30] MEDS ORDERED: PAME10CA PO (01:00)
[2020-11-30] MEDS ORDERED: D5W/0.9% SODIUM CHLORIDE 1,000 ML IV SCH (01:35)
--- NOTE | 2020-11-30 01:38 | HPEPDOC ---
[facility] Medical History & Physical Date of Admission Nov 30, 2020 Date of Service: Nov 30, 2020 Other Provider Mary Alice Cardenas NP Attending Physician: CARMEL COX MD History and Physical TIME OF SERVICE: 115AM CHIEF COMPLAINT: dizzy HISTORY OF PRESENT ILLNESS: 3 days ago noticed that her left leg was numb but she was told by another healthcare provider that it was likely due to her neuropathy. 2 days ago she started coughing; the coughing got really bad yesterday. She also noticed that she has been having trouble even drinking water and has not eaten much food. Today she came to the hospital because she has been feeling dizzy. She has a history of vertigo which she describes as feeling like the floor is falling beneath me, but the dizziness is different. She feels like she is having internal shakiness, feeling like she is drunk, her head is spinning and like she is going to puke. She had 3 episodes of non-bloody emesis associated with the dizziness. Every time she stands up she feels dizzy and her HR goes up; she has a heart monitor that she uses at home and noticed that her HR was as high as 115. She had a near fall but her daughter caught her. She re ports always drooling and frequently dropping objects and reports that her weakness and facial droop from the previous CVA resolved. She had a transient episode pain in-between her shoulder blades, denies having any chest pain or dyspnea; she has a hx of chronic diarrhea alternating with episodes of constipation. 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 HOME MEDICATIONS: Please see below. PHYSICAL EXAMINATION: Vital Signs Date Time Temp Pulse Resp B/P (MAP) Pulse Ox O2 Delivery O2 Flow Rate FiO2 11/29/20 16:03 97.4 95 20 98/54 (69) 97 Room Air GENERAL APPEARANCE: appears older than stated age/ pacing in the ER room HEENT: MM pink but dry / she has dentures / CARDIOVASCULAR: RRR/NMRG / no LE edema LUNGS: CTAB on RA ABDOMEN: contour flat MUSCULOSKELETAL: strength 5/5 at RUE and LLE / strength 4/5 at LUE and LLE - 4/5 at LLE INTEGUMENT: not flushed / no rashes / lips slightly dysky in color NEUROLOGICAL: EOMI are intact in the right eye / she has left sided vision loss /tongue is midline / she cant lift her left eyebrow, she has nasal labial fold flattening at the left murcia (I had the patient look at herself during the exam and she reported that this is worse (she thinks it resolved after her old CVA) but she is not sure when it started/ she has decreased sensation at the left upper face, left lower face and left arm/ her speech not dysarthric PSYCHIATRIC: A&O x3 / able to understand and follow all commands LABORATORY DATA: 11/29/20 16:31 IMAGING: CT head IMPRESSION: No acute or concerning focal intracranial abnormality. CTA chest IMPRESSION: 1. No evidence of acute pulmonary embolus or aortic dissection. 2. Mild distention of the midthoracic esophagus, with intraluminal ingested material, suggesting possible esophageal dysmotility. I do not see e vidence of an esophageal obstructing mass but clinical correlation is advised. CTA abd/pelvis IMPRESSION: 1. Unremarkable CT angiographic study of the abdominal aorta and its major branch vessels. No aneurysm, dissection or significant atherosclerotic stenosis. 2. No concerning solid organ or bowel abnormality in the arterial phase. 3. Urinary bladder distention, which may be voluntary. 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 PLAN: 1 Suspected Subacute SVA Her dizziness, falls, internal shakiness,n/v, paresthesias, facial asymmetry and strength asymmetry could be due to a posterior CVA. Alternative diagnoses/ differential diagnoses include recrudescence of old stroke from metabolic stress (i.e., hypoglycemia) or infection (i.e., UTI), Todds paralysis after seizure, complex migraine, pseudo seizure, or conversion disorder. Her symptoms started 3 days ago therefore she is out of the tPA, thromobolysis and permissive HTN window. Plan: admit to medical floor / telemetry for 48H /fall precautions / keep head of bed elevated to 30 degrees /aspiration precautions/ SPL consult / NPO pending swallow evaluation / PT/OT consult ARU screen / she is allergic to ASA / f/u MRI brain and carotid US (she had contrast already during the ER admission so I cant order CTA head and neck for 24H) / aim for target BP < 130/80 because she is a diabetic w prior TIA or CVA / labetalol 5 mg IV PRN if blood pressure is greater than target / MRI brain, CTA head and Neck w contrast (or carotid US if cant give contrast / if suspect posterior circulation stroke dont order US) / f/u Echo / the day time team may consider a Neurology consult / she is already on atorvastatin 80mg daily with Plavix /f/u A1C with target A1C < 7.0% 2 Uncontrolled IDDM with diabetic neuropathy Plan: f/u accuchecks Q6H while NPO / hypoglycemia protocol / f/u A1C / c/w Gabapentin / she takes Trulicity, Lispro, Glargine & canagliflozin at home /while she is in pt status and NPO we will start Levemir 15 units QHS along w sliding scale insulin 3 Psedohyponatremia 2/2 hyperglycemia Plan: f/u repeat BMP 4 remote hx of CAD s/p PCI w stents & CABG / CVA w/o residual deficits Plan: c/w statin, IV BB and Plavix 5 Essential HTN / Systolic CHF ? 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 [place] [facility] Dispo: home after at least 2 midnights stay Home Medications Scheduled Atorvastatin Calcium (Atorvastatin Calcium) 80 Mg Tablet, 80 MG PO QHS Budesonide/Formoterol Fumarate (Budesonide-Formoterol 160-4.5) 10.2 Gm Hfa.aer.ad, 2 PUFFS PO BID Canagliflozin (Invokana) 100 Mg Tablet, 100 MG PO QAM Cetirizine HCl (Cetirizine HCl) 10 Mg Tablet, 10 MG PO DAILY Cholecalciferol (Vitamin D3) (Vitamin D3) 50 Mcg Capsule, 50 MCG PO DAILY Clopidogrel Bisulfate (Clopidogrel) 75 Mg Tab, 75 MG PO DAILY Dulaglutide (Trulicity) 1.5 Mg/0.5 Ml Pen.injctr, 1.5 MG SC Q7D TUESDAY Famotidine (Famotidine) 40 Mg Tablet, 40 MG PO DAILY Furosemide (Furosemide) 40 Mg Tab, 40 MG PO BID Gabapentin (Gabapentin) 400 Mg Capsule, 400 MG PO TID Insulin Glargine,Hum.rec.anlog (Semglee Pen) 100 Unit/Ml (3 Ml) Insuln.pen, 30 UNITS SC QPM Insulin Lispro (Admelog Solostar) 100 Unit/1 Ml Insuln.pen, 1 DOSE SC TID PER SLIDING SCALE Meclizine HCl (Meclizine HCl) 25 Mg Tab, 25 MG PO BID Metoprolol Succinate (Metoprolol Succinate) 50 Mg Tab.er.24h, 50 MG PO DAILY Montelukast Sodium (Montelukast Sodium) 10 Mg Tab, 10 MG PO QPM Nortriptyline Hcl (Pamelor) 25 Mg Capsule, 25 MG PO QHS TAKES WITH 10MG TO =35MG Nortriptyline Hcl (Pamelor) 10 Mg Capsule, 10 MG PO QHS TAKES WITH 25MG TO =35MG Delmar-3 Fatty Acids/Fish Oil (Fish Oil 1,000 mg Capsule) 1 Each Capsule, 1,000 MG PO DAILY Omeprazole (Omeprazole) 40 Mg Capsule.dr, 40 MG PO DAILY Potassium Chloride (K-Tab ER) 10 Meq Tablet.er, 20 MEQ PO DAILY Sacubitril/Valsartan (Entresto 24 mg-26 mg Tablet) 1 Each Tablet, 1 TAB PO BID Allergies Coded Allergies: bee venom protein (honey bee) (Verified Allergy, Severe, 11/29/20) TAPE (Verified Allergy, Unknown, RIPS SKIN, 10/10/19) aspirin (Verified Allergy, Unknown, 01/21/19) codeine (Verified Allergy, Unknown, 01/21/19) A-FIB/CHADSVASC A-FIB History Current/History of A-Fib/PAF?: No Current PO Anticoag Therapy: No CARMEL COX MD Nov 30, 2020 01:38
[2020-11-30] MEDS: NORTRIPTYLINE 25 MG CAP PO SCH ×2 (02:15→21:35)
[2020-11-30] MEDS: NORTRIPTYLINE 10 MG CAP PO SCH ×2 (02:15→21:35)
[2020-11-30] MEDS ORDERED: LEVEMIR (INSULIN DETEMIR) 1 UNITS/0.01ML SC ONE (02:15)
[2020-11-30 02:32] LABS: BLOOD UREA NITROGEN 15 MG/DL (7-18); CALCIUM LEVEL 8.6 MG/DL (8.5-10.1); CARBON DIOXIDE LEVEL 26 MEQ/L (21-32); CHLORIDE LEVEL 104 MEQ/L (98-107); GLOMERULAR FILTRATION RATE > 60.0 (>58); GLUCOSE, FASTING 271 MG/DL (70-100); POTASSIUM SERUM 3.7 MEQ/L (3.5-5.1); SODIUM LEVEL 138 MEQ/L (136-145)
[2020-11-30 03:00] VITALS: BP 112/66
[2020-11-30] MEDS ORDERED: LABETALOL 100MG/20ML VIAL IV SCH (03:00)
[2020-11-30] MEDS: GABAPENTIN 400MG CAP PO SCH ×4 (03:28→21:35)
[2020-11-30] MEDS: ATORVASTATIN 20 MG TAB PO SCH ×2 (03:28→21:34)
[2020-11-30] MEDS: MONTELUKAST 10 MG TAB PO SCH ×2 (03:29→18:28)
[2020-11-30] MEDS: HumaLOG INSULIN (NovoLOG) PER UNIT SC SCH ×5 (03:41→21:00)
[2020-11-30] MEDS: ACETAMINOPHEN TAB 650MG DOSE (2X325MG) PO PRN ×3 (03:57→21:35)
[2020-11-30] MEDS ORDERED: LABETALOL 100MG/20ML VIAL IV PRN (04:05)
[2020-11-30 07:07] LABS: HEMOGLOBIN 14.9 g/dl (12.0-15.5); MEAN CORPUSCULAR HEMOGLOBIN 29.3 pg (27.0-33.0); MEAN CORPUSCULAR HGB CONC 33.9 g/dl (32.0-36.5); MEAN CORPUSCULAR VOLUME 86.4 fl (80.0-96.0); PLATELET COUNT, AUTOMATED 182 10^3/uL (150-450); RED BLOOD COUNT 5.09 10^6/uL (4.00-5.40); WHITE BLOOD COUNT 9.6 10^3/uL (4.0-10.0)
[2020-11-30] MEDS: SYMBICORT 160/4.5MCG INHALER 6GM INH SCH (07:09)
[2020-11-30 07:38] LABS: BLOOD UREA NITROGEN 17 MG/DL (7-18); CALCIUM LEVEL 8.7 MG/DL (8.5-10.1); CARBON DIOXIDE LEVEL 27 MEQ/L (21-32); CHLORIDE LEVEL 105 MEQ/L (98-107); CREATININE FOR GFR 0.68 MG/DL (0.55-1.30); GLOMERULAR FILTRATION RATE > 60.0 (>58); GLUCOSE, FASTING 215 MG/DL (70-100); POTASSIUM SERUM 3.8 MEQ/L (3.5-5.1); SODIUM LEVEL 140 MEQ/L (136-145)
[2020-11-30 08:00] VITALS: BP 116/63
[2020-11-30] MEDS ORDERED: METOPROLOL SUCC (TopROL XL) 50MG **XL** TAB PO SCH (09:00)
[2020-11-30] MEDS ORDERED: IPRATROPIUM 0.5MG/ALBUTEROL 2.5MG INH SOL UD 3ML (DUONEB) NEB PRN (09:05)
[2020-11-30] MEDS: CLOPIDOGREL 75 MG TAB PO SCH (09:20)
[2020-11-30] MEDS: MECLIZINE 25 MG TABLET PO SCH ×2 (09:20→21:35)
[2020-11-30] MEDS: ENOXAPARIN 40MG/0.4ML SYRINGE (J1650 PER 10MG) SC SCH (09:20)
--- NOTE | 2020-11-30 09:37 | REP ---
INDICATION: Assess stenosis TECHNIQUE: Carotid ultrasonography was performed bilaterally FINDINGS: Right: CCA systolic: 84.3 centimeters/second CCA diastolic: 16.2 centimeters/second ICA systolic: 57.5 centimeters/second ICA diastolic: 22.9 centimeters/second ICA CCA ratio: 0.68 Left: CCA systolic: 83.0 centimeters/second CCA diastolic: 20.0 centimeters/second ICA systolic: 59.5 centimeters/second ICA diastolic: 23.8 centimeters/second ICA CCA ratio: 0.72 Vertebral artery: Right: Antegrade flow left: Antegrade flow IMPRESSION: According to the SRU criteria there is less than 50% stenosis of the internal carotid artery bilaterally. There is minimal visible plaque formation. <Electronically signed by Stone Tomas > 11/30/20 0990
[2020-11-30 12:00] VITALS: BP 110/61
--- NOTE | 2020-11-30 13:58 | IPNPDOC ---
Subjective Date Seen The patient was seen on 11/30/20. Subjective Chief Complaint/HPI Mrs. Andino is a 45 year old female with IDDM with diabetic neuropathy, CVA without residual, CAD s/p CABG, COPD, and history of brain cancer who is here with lightheadedness/dizziness. She calls it dizziness, but denies spinning or rocking motions. She feels like she is going to pass out, but it is also like she is drunk. It is worse with standing and it is still persistent. Otherwise, reports some dyspnea for the past couple of days. Lungs are diminished, but no wheezing. Breathing well at room air. Objective Physical Examination General Exam: Positive: Alert, Cooperative Eye Exam: Positive: EOMI; Negative: Sclera icteric Neck Exam: Positive: Supple Chest Exam: Positive: Clear to auscultation, Diminished Heart Exam: Positive: Rate Normal, Regular Rhythm Abdomen Exam: Positive: Normal bowel sounds, Soft; Negative: Tenderness Extremity Exam: Negative: Edema Neuro Exam: Positive: Normal Speech Psych Exam: Positive: Anxiety Assessment /Plan Assessment Mrs. Andino is a 45 year old female with IDDM with diabetic neuropathy, CVA without residual, CAD s/p CABG, COPD, and history of brain cancer who is here with lightheadedness/dizziness. Pending MRI. US carotids were negative. Otherwise, PT/OT/ARU placed. Plan/VTE VTE Prophylaxis Ordered?: Yes Plan 1. Lightheadedness/dizziness -Possible CVA given her risk factors -Patient is outside the window for TPA -US carotids did not demonstrate stenosis -Pending MRI -PT/OT/ARU ordered 2. IDDM with diabetic neuropathy -Basal and sliding scale insulin 3. CAD s/p stents and CABG -Stable, no active chest pain -Continue atorvastatin and clopidogrel -Last echocardiogram in 2018 demonstrates EF of 60%. Entresto on hold -Pending echocardiogram results 4. Hypertension -PRN labetalol 5. COPD -Stable -Continue montelukast, ICS/LABA, and PRN duonebs 6. Anxiety disorder -Continue nortriptyline 7. DVT ppx -Lovenox Disposition: Pending clinical improvement and echocardiogram and MRI results. Pending PT/OT/ARU screen VS, I&O, 24H, Fishbone Vital Signs/I&O Vital Signs Date Time Temp Pulse Resp B/P (MAP) Pulse Ox O2 Delivery O2 Flow Rate FiO2 11/30/20 12:00 98.2 96 18 110/61 (77) 96 Room Air I&O- Last 24 Hours up to 6 AM 11/30/20 06:00 Intake Total 2050 ml Balance 2050 ml Laboratory Data 24H LABS Laboratory Tests 2 11/29/20 16:31: Immature Granulocyte % (Auto) 0.5, Neutrophils (%) (Auto) 60.6, Lymphocytes (%) (Auto) 30.2, Monocytes (%) (Auto) 4.3, Eosinophils (%) (Auto) 3.9H, Basophils (%) (Auto) 0.5, Neutrophils # (Auto) 5.6, Lymphocytes # (Auto) 2.8, Monocytes # (Auto) 0.4, Eosinophils # (Auto) 0.4, Basophils # (Auto) 0.1, Nucleated Red Blood Cells % (auto) 0.0, Anion Gap 6L, Glomerular Filtration Rate 55.5L, Calcium Level 9.2, Total Bilirubin 0.4, Aspartate Amino Transf (AST/SGOT) 10, Alanine Aminotransferase (ALT/SGPT) 23, Alkaline Phosphatase 153H, Total Creatine Kinase 30, Creatine Kinase MB 1.5, Creatine Kinase MB Relative Index 5.00H, Troponin I < 0.02, Total Protein 7.1, Albumin 3.9, Albumin/Globulin Ratio 1.2, Procalcitonin <0.05, Thyroid Stimulating Hormone (TSH) 2.790, Ethyl Alcohol Level < 0.003 11/29/20 20:20: Total Creatine Kinase 30, Creatine Kinase MB < 1.0, Creatine Kinase MB Relative Index 3.33, Troponin I < 0.02, Coronavirus (COVID-19)(PCR) NEGATIVE, Influenza Type A (RT-PCR) NEGATIVE, Influenza Type B (RT-PCR) NEGATIVE, Respiratory Syncytial Virus (PCR) NEGATIVE 11/30/20 01:55: Anion Gap 8, Glomerular Filtration Rate > 60.0, Calcium Level 8.6 11/30/20 03:27: Bedside Glucose (Misc Panel) 301H 11/30/20 06:27: Nucleated Red Blood Cells % (auto) 0.0, Anion Gap 8, Glomerular Filtration Rate > 60.0, Calcium Level 8.7 11/30/20 07:12: Bedside Glucose (Misc Panel) 197H 11/30/20 12:26: Bedside Glucose (Misc Panel) 214H CBC/BMP Laboratory Tests 11/29/20 16:31 11/30/20 01:55 11/30/20 06:27 Microbiology Microbiology 11/29/20 Blood Culture, Received Pending 11/29/20 Blood Culture, Received Pending JULIO PELLETIER DO Nov 30, 2020 13:58
--- NOTE | 2020-11-30 14:25 | ECGEPIP ---
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
[2020-11-30 20:00] VITALS: BP 117/67
--- NOTE | 2020-11-30 21:16 | ECHO ---
ECHOCARDIOGRAM DATE OF PROCEDURE: 11/30/2020 Age: 45 Gender: Female Height: 61 inches Weight: 135 pounds REFERRING PHYSICIAN: Dr. Karely Ochoa INDICATION: Coronary artery disease, status post CABG, status post percutaneous intervention, old RI, acute stroke. MEASUREMENTS: 2D Measurements: Aortic root 2.8 cm Proximal ascending aorta 2.8 cm Left atrium 2.6 cm Intraventricular septum 0.8 cm Posterior wall 0.82 cm Left ventricle diastole 4.3 cm Left ventricle systole 2.3 cm Inferior vena cava 0.6 cm Doppler Measurements: No aortic stenosis No aortic regurgitation Aortic valve velocity 151 cm/s LVOT velocity 94.0 cm/s LVOT VTI 19.7 cm No mitral regurgitation Mitral E velocity 81.0 cm/s Mitral A velocity 99.0 cm/s (at 90 bpm) No tricuspid regurgitation Trace pulmonic regurgitation Pulmonary artery acceleration time 114 msec MITRAL ANNULAR TISSUE DOPPLER E prime lateral 11.1 cm/s, E prime septal 7.8 cm/s DESCRIPTION: Rhythm was sinus. Image quality was good. This was a 2D, M-mode, color flow Doppler, and pulsed wave Doppler examination including mitral annular tissue Doppler. No pericardial effusion. CONCLUSIONS: 1. Normal left ventricle internal dimensions and wall thickening. Normal regional LV wall motion and wall thickening. Normal LV systolic function. LVEF 60% by visual estimate. Normal peak systolic longitudinal strain pattern. Normal LV diastolic function at the observed heart rate. 2. Otherwise normal echocardiogram Doppler. 3. Negative Bubble study for detection of right heart to left heart intracardiac or intrapulmonary shunting.
[2020-11-30] MEDS: LEVEMIR (INSULIN DETEMIR) 1 UNITS/0.01ML SC SCH (21:38)
--- NOTE | 2020-11-30 21:44 | REPVR ---
PROCEDURE INFORMATION: Exam: MR Head Without Contrast Exam date and time: 11/30/2020 7:52 PM Age: 45 years old Clinical indication: Other: Weakness and paresthesia; Prior surgery; Surgery date: 6+ months; Patient HX: HX of prior stroke per PT 2019. HX of tumor removal at 12yo. PT states left sided weakness and numbness of the entire body. Overall weakness. TECHNIQUE: Imaging protocol: MR of the head without contrast. COMPARISON: CT Head without contrast 11/29/2020 5:38 PM FINDINGS: Brain: There is no restricted diffusion to suggest acute infarction. No acute intracranial hemorrhage or prior microhemorrhages. No demyelinating plaques. No mass. 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 Series 501, image 1 frame 7,8 Cerebral ventricles: No ventricular dilatation. Pituitary gland and sella: Appearance of "empty sella turcica". Bones/joints: Unremarkable. Paranasal sinuses: Normal as visualized. No acute sinusitis. Mastoid air cells: Prior right mastoidectomy. Orbital cavity: Unremarkable. Soft tissues: Unremarkable. IMPRESSION: No acute cerebral infarction or intracranial hemorrhage. Electronically signed by: Aissatou Mondragon On 11/30/2020 21:44:45 PM
[2020-12-01] VITALS (7 sets, daily range): BP systolic 106–116; BP diastolic 57–66
[2020-12-01 05:21] LABS: HEMATOCRIT 37.4 % (36.0-47.0); HEMOGLOBIN 12.5 g/dl (12.0-15.5); MEAN CORPUSCULAR HEMOGLOBIN 29.7 pg (27.0-33.0); MEAN CORPUSCULAR HGB CONC 33.4 g/dl (32.0-36.5); MEAN CORPUSCULAR VOLUME 88.8 fl (80.0-96.0); PLATELET COUNT, AUTOMATED 156 10^3/uL (150-450); RED BLOOD COUNT 4.21 10^6/uL (4.00-5.40)
[2020-12-01 05:55] LABS: BLOOD UREA NITROGEN 11 MG/DL (7-18); CARBON DIOXIDE LEVEL 28 MEQ/L (21-32); CHLORIDE LEVEL 110 MEQ/L (98-107); CREATININE FOR GFR 0.58 MG/DL (0.55-1.30); GLOMERULAR FILTRATION RATE > 60.0 (>58); GLUCOSE, FASTING 155 MG/DL (70-100); POTASSIUM SERUM 3.5 MEQ/L (3.5-5.1); SODIUM LEVEL 142 MEQ/L (136-145)
[2020-12-01] MEDS: SYMBICORT 160/4.5MCG INHALER 6GM INH SCH ×3 (07:24→20:00)
[2020-12-01] MEDS: HumaLOG INSULIN (NovoLOG) PER UNIT SC SCH ×4 (08:55→21:45)
[2020-12-01] MEDS: CLOPIDOGREL 75 MG TAB PO SCH (08:55)
[2020-12-01] MEDS: GABAPENTIN 400MG CAP PO SCH ×3 (08:55→21:43)
[2020-12-01] MEDS: ENOXAPARIN 40MG/0.4ML SYRINGE (J1650 PER 10MG) SC SCH (08:55)
[2020-12-01] MEDS: MECLIZINE 25 MG TABLET PO SCH ×2 (08:55→21:42)
[2020-12-01 12:11] LABS: HEMATOCRIT 42.1 % (36.0-47.0); HEMOGLOBIN 13.8 g/dl (12.0-15.5); MEAN CORPUSCULAR HEMOGLOBIN 29.6 pg (27.0-33.0); MEAN CORPUSCULAR HGB CONC 32.8 g/dl (32.0-36.5); MEAN CORPUSCULAR VOLUME 90.1 fl (80.0-96.0); PLATELET COUNT, AUTOMATED 152 10^3/uL (150-450); RED BLOOD COUNT 4.67 10^6/uL (4.00-5.40); WHITE BLOOD COUNT 5.4 10^3/uL (4.0-10.0)
[2020-12-01] MEDS: ACETAMINOPHEN TAB 650MG DOSE (2X325MG) PO PRN (15:08)
[2020-12-01] MEDS ORDERED: FUROSEMIDE 40MG/4ML VIAL (J1940) IV ONE (16:15)
--- NOTE | 2020-12-01 16:38 | IPNPDOC ---
Subjective Date Seen The patient was seen on 12/01/20. Subjective Chief Complaint/HPI Mrs. Andino is a 45 year old female with IDDM with diabetic neuropathy, CVA without residual, CAD s/p CABG, COPD, and history of brain cancer who is here with lightheadedness/dizziness. She feels that her lightheadedness/dizziness has slightly improved, but she is still functioning below her baseline. Denies chest pain or dyspnea. ARU screen has been placed. Objective Physical Examination General Exam: Positive: Alert, Cooperative Eye Exam: Positive: EOMI; Negative: Sclera icteric Neck Exam: Positive: Supple Chest Exam: Positive: Clear to auscultation, Diminished Heart Exam: Positive: Rate Normal, Regular Rhythm Abdomen Exam: Positive: Normal bowel sounds, Soft; Negative: Tenderness Extremity Exam: Negative: Edema Neuro Exam: Positive: Normal Speech Psych Exam: Positive: Anxiety Assessment /Plan Assessment Mrs. Andino is a 45 year old female with IDDM with diabetic neuropathy, CVA without residual, CAD s/p CABG, COPD, and history of brain cancer who is here with lightheadedness/dizziness. MRI negative. US carotids negative. ARU screen placed Plan/VTE VTE Prophylaxis Ordered?: Yes Plan 1. Lightheadedness/dizziness -Possible CVA given her risk factors -Patient is outside the window for TPA -US carotids did not demonstrate stenosis -MRI negative for acute/subacute stroke -PT/OT/ARU ordered 2. IDDM with diabetic neuropathy -Basal and sliding scale insulin 3. CAD s/p stents and CABG -Stable, no active chest pain -Continue atorvastatin and clopidogrel -Last echocardiogram in 2018 demonstrates EF of 60% -Repeat echocardiogram demonstrates EF of 60%, patient does not need Entresto, would discontinue 4. Hypertension -PRN labetalol 5. COPD -Stable -Continue montelukast, ICS/LABA, and PRN duonebs 6. Anxiety disorder -Continue nortriptyline 7. DVT ppx -Lovenox Disposition: Pending ARU screen VS, I&O, 24H, Fishbone Vital Signs/I&O Vital Signs Date Time Temp Pulse Resp B/P (MAP) Pulse Ox O2 Delivery O2 Flow Rate FiO2 12/01/20 12:00 98.2 96 18 110/61 96 Room Air I&O- Last 24 Hours up to 6 AM 12/01/20 06:00 Intake Total 400 ml Output Total 600 ml Balance -200 ml Laboratory Data 24H LABS Laboratory Tests 2 11/30/20 17:27: Bedside Glucose (Misc Panel) 211H 11/30/20 21:32: Bedside Glucose (Misc Panel) 236H 12/01/20 04:58: Nucleated Red Blood Cells % (auto) 0.0, Anion Gap 4L, Glomerular Filtration Rate > 60.0, Calcium Level 8.0L 12/01/20 11:43: Nucleated Red Blood Cells % (auto) 0.0 12/01/20 12:10: Bedside Glucose (Misc Panel) 120H CBC/BMP Laboratory Tests 12/01/20 04:58 12/01/20 11:43 Microbiology Microbiology 11/29/20 Blood Culture - Preliminary, Resulted No growth after 24 hours . All specim... 11/29/20 Blood Culture - Preliminary, Resulted No growth after 24 hours . All specim... JULIO PELLETIER DO Dec 01, 2020 16:38
[2020-12-01] MEDS: MONTELUKAST 10 MG TAB PO SCH (17:04)
[2020-12-01] MEDS: NORTRIPTYLINE 10 MG CAP PO SCH (21:44)
[2020-12-01] MEDS: NORTRIPTYLINE 25 MG CAP PO SCH (21:44)
[2020-12-01] MEDS: ATORVASTATIN 20 MG TAB PO SCH (21:44)
[2020-12-01] MEDS: LEVEMIR (INSULIN DETEMIR) 1 UNITS/0.01ML SC SCH (21:46)
[2020-12-02] VITALS: BP 94/51
[2020-12-02 04:00] VITALS: BP 102/59
[2020-12-02 06:14] LABS: HEMATOCRIT 38.6 % (36.0-47.0); HEMOGLOBIN 12.4 g/dl (12.0-15.5); MEAN CORPUSCULAR HEMOGLOBIN 29.1 pg (27.0-33.0); MEAN CORPUSCULAR HGB CONC 32.1 g/dl (32.0-36.5); MEAN CORPUSCULAR VOLUME 90.6 fl (80.0-96.0); PLATELET COUNT, AUTOMATED 147 10^3/uL (150-450); RED BLOOD COUNT 4.26 10^6/uL (4.00-5.40); WHITE BLOOD COUNT 4.8 10^3/uL (4.0-10.0)
[2020-12-02 06:32] LABS: BLOOD UREA NITROGEN 9 MG/DL (7-18); CALCIUM LEVEL 8.4 MG/DL (8.5-10.1); CARBON DIOXIDE LEVEL 29 MEQ/L (21-32); CHLORIDE LEVEL 110 MEQ/L (98-107); CREATININE FOR GFR 0.65 MG/DL (0.55-1.30); GLOMERULAR FILTRATION RATE > 60.0 (>58); GLUCOSE, FASTING 161 MG/DL (70-100); POTASSIUM SERUM 3.9 MEQ/L (3.5-5.1); SODIUM LEVEL 144 MEQ/L (136-145)
[2020-12-02] MEDS: SYMBICORT 160/4.5MCG INHALER 6GM INH SCH (07:29)
[2020-12-02 08:00] VITALS: BP 116/59
[2020-12-02] MEDS: GABAPENTIN 400MG CAP PO SCH (08:24)
[2020-12-02] MEDS: CLOPIDOGREL 75 MG TAB PO SCH (08:24)
[2020-12-02] MEDS: ENOXAPARIN 40MG/0.4ML SYRINGE (J1650 PER 10MG) SC SCH (08:24)
[2020-12-02] MEDS: MECLIZINE 25 MG TABLET PO SCH (08:24)
[2020-12-02] MEDS: HumaLOG INSULIN (NovoLOG) PER UNIT SC SCH ×2 (08:25→12:14)
[2020-12-02] MEDS ORDERED: FUROSEMIDE 40 MG TAB PO SCH (09:00)
[2020-12-02 12:00] VITALS: BP 103/55
--- NOTE | 2020-12-02 19:21 | DS.PDOC ---
Discharge Summary General Date of Admission Dec 01, 2020 at 09:27 Date of Discharge 12/02/20 Discharge Summary PROCEDURES PERFORMED DURING STAY: [None]. ADMITTING DIAGNOSES: Lightheadedness/dizziness IDDM with diabetic neuropathy CAD s/p stents and CABG Hypertension COPD Anxiety disorder DISCHARGE DIAGNOSES: Lightheadedness/dizziness IDDM with diabetic neuropathy CAD s/p stents and CABG Hypertension COPD Anxiety disorder COMPLICATIONS/CHIEF COMPLAINT: Dehydration. HISTORY OF PRESENT ILLNESS: 3 days ago noticed that her left leg was numb but she was told by another healthcare provider that it was likely due to her neuropathy. 2 days ago she started coughing; the coughing got really bad yesterday. She also noticed that she has been having trouble even drinking water and has not eaten much food. Today she came to the hospital because she has been feeling dizzy. She has a history of vertigo which she describes as feeling like the floor is falling beneath me, but the dizziness is different. She feels like she is having internal shakiness, feeling like she is drunk, her head is spinning and like she is going to puke. She had 3 episodes of non-bloody emesis associated with the dizziness. Every time she stands up she feels dizzy and her HR goes up; she has a heart monitor that she uses at home and noticed that her HR was as high as 115. She had a near fall but her daughter caught her. She reports always drooling and frequently dropping objects and reports that her weakness and facial droop from the previous CVA resolved. She had a transient episode pain in-between her shoulder blades, denies having any chest pain or dyspnea; she has a hx of chronic diarrhea alternating with episodes of constipation. She denies missing any doses of medications except for a few doses while in the ER HOSPITAL COURSE: During hospital stay following issues addressed 1. Lightheadedness/dizziness -Possible TIA given her risk factors or medication side effect -Patient is outside the window for TPA -US carotids did not demonstrate stenosis -MRI negative for acute/subacute stroke -PT/OT/ARU ordered Follow-up with neurologist in the outpatient settings 2. IDDM with diabetic neuropathy -Basal and sliding scale insulin 3. CAD s/p stents and CABG -Stable, no active chest pain -Continue atorvastatin and clopidogrel -Last echocardiogram in 2017 demonstrates EF of 60% -Repeat echocardiogram demonstrates EF of 60%, patient does not need Entresto, would discontinue 4. Hypertension -PRN labetalol 5. COPD -Stable -Continue montelukast, ICS/LABA, and PRN duonebs 6. Anxiety disorder -Continue nortriptyline DISCHARGE MEDICATIONS: Please see below. ALLERGIES: Please see below. PHYSICAL EXAMINATION ON DISCHARGE: VITAL SIGNS: Please see below. General Exam: Positive: Alert, Cooperative Eye Exam: Positive: EOMI; Negative: Sclera icteric Neck Exam: Positive: Supple Chest Exam: Positive: Clear to auscultation, Diminished Heart Exam: Positive: Rate Normal, Regular Rhythm Abdomen Exam: Positive: Normal bowel sounds, Soft; Negative: Tenderness Extremity Exam: Negative: Edema Neuro Exam: Positive: Normal Speech Psych Exam: Positive: Anxiety LABORATORY DATA: Please see below. IMAGING: [facility] NAME: SEBASTIAN COPELAND DATE OF : 1975 BUSINESS NUMBER: [id number] AGE: 45 SEX: F REPORT #: [id number] ROOM: [facility] TECHNOLOGIST: CHITO DOCTOR: JULIO PELLETIER DO Ordered for Date&Time: 11/30/201835 cc: [~ rep ct ivnm] Service Date&Time: 11/30/201951 This report is in Signed status. Interpretation performed by [facility]. Thank you for having your radiology procedures performed at [facility] RADIOLOGY REPORT Date&Time printed: [~ rep prt dt last] [~ rep prt tm last] Page 2 of 2 [place] [id number] RADIOLOGY REPORT This report is in Signed status. Interpretation performed by [facility]. Thank you for having your radiology procedures performed at [facility] RADIOLOGY REPORT Date&Time printed: [~ rep prt dt last] [~ rep prt tm last] Page 1 of 1 PROCEDURE INFORMATION: Exam: MR Head Without Contrast Exam date and time: 11/30/2020 7:52 PM Age: 45 years old Clinical indication: Other: Weakness and paresthesia; Prior surgery; Surgery date: 6+ months; Patient HX: HX of prior stroke per PT 2019. HX of tumor removal at 12yo. PT states left sided weakness and numbness of the entire body. Overall weakness. TECHNIQUE: Imaging protocol: MR of the head without contrast. COMPARISON: CT Head without contrast 11/29/2020 5:38 PM FINDINGS: Brain: There is no restricted diffusion to suggest acute infarction. No acute intracranial hemorrhage or prior microhemorrhages. No demyelinating plaques. No mass. 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 Series 501, image 1 frame 7,8 Cerebral ventricles: No ventricular dilatation. Pituitary gland and sella: Appearance of "empty sella turcica". Bones/joints: Unremarkable. Paranasal sinuses: Normal as visualized. No acute sinusitis. Mastoid air cells: Prior right mastoidectomy. Orbital cavity: Unremarkable. Soft tissues: Unremarkable. IMPRESSION: No acute cerebral infarction or intracranial hemorrhage. Electronically signed by: Carley Mondragon On 11/30/2020 21:44:45 PM DD: CARLEY MONDRAGON MD 11/30/201951 DT: CATALINA 11/30/202143 DS: KIM 11/30/202143 [~ rep ct labl] PROGNOSIS: Fair ACTIVITY: [As tolerated]. DIET: Diabetes DISPOSITION: Home Health Service. ITEMS TO FOLLOWUP ON ON OUTPATIENT: Follow-up with neurologist and PCP DISCHARGE CONDITION: [Stable]. TIME SPENT ON DISCHARGE: 40minutes. Vital Signs/I&Os Vital Signs Date Time Temp Pulse Resp B/P (MAP) Pulse Ox O2 Delivery O2 Flow Rate FiO2 12/02/20 12:00 97.0 91 20 103/55 (71) 99 Room Air I&O- Last 24 Hours up to 6 AM 12/02/20 06:00 Intake Total 1980 ml Output Total 1300 ml Balance 680 ml Laboratory Data Labs 24H Laboratory Tests 2 12/01/20 20:03: Bedside Glucose (Misc Panel) 284H 12/01/20 21:33: Bedside Glucose (Misc Panel) 345H 12/02/20 05:33: Nucleated Red Blood Cells % (auto) 0.0, Anion Gap 5L, Glomerular Filtration Rate > 60.0, Calcium Level 8.4L 12/02/20 11:52: Bedside Glucose (Misc Panel) 207H CBC/BMP Laboratory Tests 12/02/20 05:33 FSBS Laboratory Tests Test 12/01/20 20:03 12/01/20 21:33 12/02/20 11:52 Range/Units Bedside Glucose (Misc Panel) 284 345 207 70-105 MG/DL Microbiology Microbiology 11/29/20 Blood Culture - Preliminary, Resulted No Growth after 48 hours. All Specime... 11/29/20 Blood Culture - Preliminary, Resulted No Growth after 48 hours. All Specime... Discharge Medications Scheduled Atorvastatin Calcium (Atorvastatin Calcium) 80 Mg Tablet, 80 MG PO QHS, (Reported) Budesonide/Formoterol Fumarate (Budesonide-Formoterol 160-4.5) 10.2 Gm Hfa.aer.ad, 2 PUFFS PO BID, (Reported) Canagliflozin (Invokana) 100 Mg Tablet, 100 MG PO QAM, (Reported) Cholecalciferol (Vitamin D3) (Vitamin D3) 50 Mcg Capsule, 50 MCG PO DAILY, (Reported) Clopidogrel Bisulfate (Clopidogrel) 75 Mg Tab, 75 MG PO DAILY, (Reported) Dulaglutide (Trulicity) 1.5 Mg/0.5 Ml Pen.injctr, 1.5 MG SC Q7D, (Reported) TUESDAY Furosemide (Furosemide) 40 Mg Tab, 40 MG PO BID, (Reported) Gabapentin (Gabapentin) 400 Mg Capsule, 400 MG PO TID, (Reported) Insulin Glargine,Hum.rec.anlog (Semglee Pen) 100 Unit/Ml (3 Ml) Insuln.pen, 30 UNITS SC QPM, (Reported) Insulin Lispro (Admelog Solostar) 100 Unit/1 Ml Insuln.pen, 1 DOSE SC TID, (Reported) PER SLIDING SCALE Meclizine HCl (Meclizine HCl) 25 Mg Tab, 25 MG PO BID, (Reported) Metoprolol Succinate (Metoprolol Succinate) 50 Mg Tab.er.24h, 50 MG PO DAILY, (Reported) Montelukast Sodium (Montelukast Sodium) 10 Mg Tab, 10 MG PO QPM, (Reported) Nortriptyline Hcl (Pamelor) 25 Mg Capsule, 25 MG PO QHS, (Reported) TAKES WITH 10MG TO =35MG Nortriptyline Hcl (Pamelor) 10 Mg Capsule, 10 MG PO QHS, (Reported) TAKES WITH 25MG TO =35MG [place]-3 Fatty Acids/Fish Oil (Fish Oil 1,000 mg Capsule) 1 Each Capsule, 1,000 MG PO DAILY, (Reported) Omeprazole (Omeprazole) 40 Mg Capsule.dr, 40 MG PO DAILY, (Reported) Potassium Chloride (K-Tab ER) 10 Meq Tablet.er, 20 MEQ PO DAILY, (Reported) Sacubitril/Valsartan (Entresto 24 mg-26 mg Tablet) 1 Each Tablet, 1 TAB PO BID, (Reported) Allergies Coded Allergies: bee venom protein (honey bee) (Verified Allergy, Severe, 11/29/20) TAPE (Verified Allergy, Unknown, RIPS SKIN, 10/10/19) aspirin (Verified Allergy, Unknown, 01/21/19) codeine (Verified Allergy, Unknown, 01/21/19) NIURKA RAYA DO Dec 02, 2020 19:21
== END 2020-12-02 14:05 | disposition home health service (06) | DRG 111 ==
LOC: M ED 16:03 → M ED INP 16:04 → M PCU 11-30 02:57 → INTOOBSV 12-01 09:27 → OBSVTOIN 12-01 09:27
PROVIDERS: ADMIT Internal Medicine; ATTEND Internal Medicine
DX: R42 Dizziness and giddiness (principal); I11.0 Hypertensive heart disease with heart failure; E11.40 Type 2 diabetes mellitus with diabetic neuropathy, unspecified; I50.22 Chronic systolic (congestive) heart failure; E11.65 Type 2 diabetes mellitus with hyperglycemia; I25.10 Atherosclerotic heart disease of native coronary artery without angina pectoris; J44.9 Chronic obstructive pulmonary disease, unspecified; F41.9 Anxiety disorder, unspecified; G43.909 Migraine, unspecified, not intractable, without status migrainosus; Z87.891 Personal history of nicotine dependence; Z85.841 Personal history of malignant neoplasm of brain; Z79.02 Long term (current) use of antithrombotics/antiplatelets; Z79.4 Long term (current) use of insulin; Z95.5 Presence of coronary angioplasty implant and graft; Z86.73 Personal history of transient ischemic attack (TIA), and cerebral infarction without residual deficits; Z79.899 Other long term (current) drug therapy; Z88.5 Allergy status to narcotic agent; Z88.6 Allergy status to analgesic agent; Z91.030 Bee allergy status; Z91.048 Other nonmedicinal substance allergy status; Z20.822 Contact with and (suspected) exposure to COVID-19

== ENCOUNTER 2021-09-09 22:27 | Emergency (ER) | payer OTHER ==
[~2021-09-09] VITALS: Ht 154.9 cm; Wt 59.1 kg
[~2021-09-09 22:27] MED LIST changes: +BUDE10.2 PO; +CETI-24 PO; +D3 S1CAP PO; +ENTR1TAB PO; +GABA-283 PO; +INSU100I28 SC; +INVO100T PO; -LISI2.5T2 PO; +LISI2.5T9 PO; +MED REC COMMENT; +METO1TAB7 PO; -MONT10TA10 PO; +MONT10TA97 PO; +OMEP40CA5 PO; +PAME25CA PO
[2021-09-10 05:03] LABS: BASO # 0.1 10^3/uL (0.0-0.2); BASO % 0.6 % (0.0-1.0); EOS # 0.4 10^3/uL (0.0-0.5); EOS % 4.9 % (0.0-3.0); HEMOGLOBIN 15.2 g/dl (12.0-15.5); LYMPH # 2.3 10^3/uL (1.5-5.0); LYMPH % 27.9 % (24.0-44.0); MEAN CORPUSCULAR HEMOGLOBIN 30.3 pg (27.0-33.0); MEAN CORPUSCULAR HGB CONC 34.5 g/dl (32.0-36.5); MEAN CORPUSCULAR VOLUME 87.8 fl (80.0-96.0); MONO # 0.3 10^3/uL (0.0-0.8); MONO % 3.8 % (2.0-8.0); NEUTROPHILS # 5.1 10^3/uL (1.5-8.5); NEUTROPHILS % 62.3 % (36.0-66.0); PLATELET COUNT, AUTOMATED 207 10^3/uL (150-450); RED BLOOD COUNT 5.01 10^6/uL (4.00-5.40); WHITE BLOOD COUNT 8.2 10^3/uL (4.0-10.0)
[2021-09-10 06:08] LABS: BLOOD UREA NITROGEN 16 MG/DL (7-18); CALCIUM LEVEL 9.1 MG/DL (8.5-10.1); CARBON DIOXIDE LEVEL 32 MEQ/L (21-32); CHLORIDE LEVEL 96 MEQ/L (98-107); CREATININE FOR GFR 0.87 MG/DL (0.55-1.30); GLOMERULAR FILTRATION RATE > 60.0 (>58); GLUCOSE, FASTING 427 MG/DL (70-100); MAGNESIUM LEVEL 2.4 MG/DL (1.8-2.4); POTASSIUM SERUM 4.4 MEQ/L (3.5-5.1); SODIUM LEVEL 134 MEQ/L (136-145)
[2021-09-10] MEDS ORDERED: HumuLIN R (REGULAR) INSULIN (NovoLIN R) **100U/ML** PER UNIT IV ONE (06:20)
[2021-09-10] MEDS ORDERED: ALPR0.25 PO (08:27)
[2021-09-10] MEDS ORDERED: FAMO40TA3 PO (08:27)
[2021-09-10] MEDS ORDERED: ALBU8.5H INH (08:27)
[2021-09-10] MEDS ORDERED: GLIM1TAB4 PO (08:27)
[2021-09-10] MEDS ORDERED: ENTR1TAB PO ×2 (08:27→09:16)
[2021-09-10] MEDS ORDERED: CETI-24 PO (08:27)
[2021-09-10 09:15] VITALS: BP 87/58
== END 2021-09-10 09:26 | disposition home or self-care (01) ==
LOC: M ED 22:27
DX: I10 Essential (primary) hypertension (principal); E11.65 Type 2 diabetes mellitus with hyperglycemia; I73.00 Raynaud's syndrome without gangrene; Z86.16 Personal history of COVID-19; I25.10 Atherosclerotic heart disease of native coronary artery without angina pectoris; I25.2 Old myocardial infarction; E78.5 Hyperlipidemia, unspecified; Z95.5 Presence of coronary angioplasty implant and graft; Z95.1 Presence of aortocoronary bypass graft; Z79.4 Long term (current) use of insulin; Z79.899 Other long term (current) drug therapy; Z91.89 Other specified personal risk factors, not elsewhere classified; Z91.030 Bee allergy status; Z88.5 Allergy status to narcotic agent; Z88.8 Allergy status to other drugs, medicaments and biological substances
CPT/HCPCS: 71045; 80048; 83735; 85025; 87798; 93971; 99284; J1815

== ENCOUNTER 2021-09-15 15:44 | Emergency (ER) | payer OTHER ==
[~2021-09-15] VITALS: Ht 154.9 cm; Wt 59.1 kg
[~2021-09-15 15:44] MED LIST changes: +ALBU8.5H INH
[2021-09-15] MEDS ORDERED: NITR0.4S14 (16:02)
[2021-09-15] MEDS ORDERED: NS 500 ML IV ONE (16:35)
[2021-09-15 16:37] LABS: BASO % 0.4 % (0.0-1.0); EOS # 0.2 10^3/uL (0.0-0.5); EOS % 2.3 % (0.0-3.0); HEMATOCRIT 44.2 % (36.0-47.0); HEMOGLOBIN 15.7 g/dl (12.0-15.5); LYMPH # 1.9 10^3/uL (1.5-5.0); LYMPH % 17.8 % (24.0-44.0); MEAN CORPUSCULAR HEMOGLOBIN 30.2 pg (27.0-33.0); MEAN CORPUSCULAR HGB CONC 35.5 g/dl (32.0-36.5); MONO # 0.5 10^3/uL (0.0-0.8); MONO % 4.5 % (2.0-8.0); NEUTROPHILS % 74.7 % (36.0-66.0); PLATELET COUNT, AUTOMATED 235 10^3/uL (150-450); WHITE BLOOD COUNT 10.7 10^3/uL (4.0-10.0)
[2021-09-15 16:50] LABS: INR 0.89; PROTHROMBIN TIME 12.4 SECONDS (12.7-14.5)
[2021-09-15 16:51] LABS: PARTIAL THROMBOPLASTIN TIME 29.2 SECONDS (25.9-37.0)
[2021-09-15 17:04] LABS: CK-MB VALUE MASS < 1.0 NG/ML (<3.6); CPK CREATINE PHOSPHOKINASE 55 U/L (26-192); MB/CK RELATIVE INDEX 1.82 (< OR =4)
[2021-09-15 17:51] LABS: CK-MB VALUE MASS < 1.0 NG/ML (<3.6); CPK CREATINE PHOSPHOKINASE 28 U/L (26-192); MB/CK RELATIVE INDEX 3.57 (< OR =4)
[2021-09-15 18:35] LABS: ALBUMIN 3.5 GM/DL (3.2-5.2); ALT/SGPT 20 U/L (12-78); BILIRUBIN,DIRECT 0.1 MG/DL (0.0-0.2); BILIRUBIN,TOTAL 0.5 MG/DL (0.2-1.0); BLOOD UREA NITROGEN 9 MG/DL (7-18); CALCIUM LEVEL 8.6 MG/DL (8.5-10.1); CARBON DIOXIDE LEVEL 32 MEQ/L (21-32); CHLORIDE LEVEL 99 MEQ/L (98-107); CREATININE FOR GFR 0.76 MG/DL (0.55-1.30); GLOMERULAR FILTRATION RATE > 60.0 (>58); GLUCOSE, FASTING 276 MG/DL (70-100); LIPASE 118 U/L (73-393); NT-PRO BNP 54 PG/ML (<125); POTASSIUM SERUM 2.9 MEQ/L (3.5-5.1); SODIUM LEVEL 139 MEQ/L (136-145); TOTAL PROTEIN 6.3 GM/DL (6.4-8.2)
[2021-09-15] MEDS ORDERED: POTASSIUM CHLORIDE 10MEQ SR TABLET PO ONE (18:40)
[2021-09-15 18:54] LABS: MAGNESIUM LEVEL 2.2 MG/DL (1.8-2.4)
[2021-09-15] MEDS ORDERED: KCL 10MEQ/100ML SWI (KRUN) 10 MEQ in IV 1 EA IV ONE (19:00)
[2021-09-15] MEDS ORDERED: ISOVUE-370 76% 100ML VIAL As Ordered ONE (19:17)
[2021-09-15 22:01] VITALS: BP 117/68
== END 2021-09-15 22:30 | disposition home or self-care (01) ==
LOC: M ED 15:44
DX: R07.89 Other chest pain (principal); E87.6 Hypokalemia; I45.81 Long QT syndrome; R00.0 Tachycardia, unspecified; I44.4 Left anterior fascicular block; I25.2 Old myocardial infarction; I25.10 Atherosclerotic heart disease of native coronary artery without angina pectoris; Z86.73 Personal history of transient ischemic attack (TIA), and cerebral infarction without residual deficits; E11.9 Type 2 diabetes mellitus without complications; I10 Essential (primary) hypertension; J44.9 Chronic obstructive pulmonary disease, unspecified; F41.9 Anxiety disorder, unspecified; G43.909 Migraine, unspecified, not intractable, without status migrainosus; Z87.891 Personal history of nicotine dependence; Z82.49 Family history of ischemic heart disease and other diseases of the circulatory system; Z95.5 Presence of coronary angioplasty implant and graft; Z79.4 Long term (current) use of insulin; Z79.899 Other long term (current) drug therapy; Z91.89 Other specified personal risk factors, not elsewhere classified; Z88.8 Allergy status to other drugs, medicaments and biological substances; Z88.5 Allergy status to narcotic agent; Z91.030 Bee allergy status
CPT/HCPCS: 71045; 71275; 80047; 80048; 80076; 82550; 82553; 83690; 83735; 83880; 84443; 85025; 85610; 85730; 93005; 93041; 94760; 96361; 96365; 99285; Q9967

== ENCOUNTER 2022-01-04 18:12 | Emergency (ER) | payer OTHER ==
[~2022-01-04 18:12] MED LIST changes: +NITR0.4S14
[2022-01-04 19:24] LABS: BASO % 0.5 % (0.0-1.0); EOS # 0.3 10^3/uL (0.0-0.5); EOS % 4.3 % (0.0-3.0); HEMATOCRIT 42.2 % (36.0-47.0); HEMOGLOBIN 14.3 g/dl (12.0-15.5); LYMPH # 2.1 10^3/uL (1.5-5.0); LYMPH % 27.9 % (24.0-44.0); MEAN CORPUSCULAR HGB CONC 33.9 g/dl (32.0-36.5); MEAN CORPUSCULAR VOLUME 85.6 fl (80.0-96.0); MONO # 0.4 10^3/uL (0.0-0.8); MONO % 4.6 % (2.0-8.0); NEUTROPHILS # 4.8 10^3/uL (1.5-8.5); NEUTROPHILS % 62.3 % (36.0-66.0); PLATELET COUNT, AUTOMATED 194 10^3/uL (150-450); RED BLOOD COUNT 4.93 10^6/uL (4.00-5.40); WHITE BLOOD COUNT 7.6 10^3/uL (4.0-10.0)
[2022-01-04 21:07] LABS: ALBUMIN 3.3 GM/DL (3.2-5.2); ALT/SGPT 15 IU/L (0-32); BILIRUBIN,TOTAL 0.3 MG/DL (0.2-1.0); BLOOD UREA NITROGEN 15 MG/DL (7-18); CALCIUM LEVEL 9.1 MG/DL (8.5-10.1); CARBON DIOXIDE LEVEL 29 mmol/L (20-29); CHLORIDE LEVEL 103 MEQ/L (98-107); CREATININE FOR GFR 0.96 MG/DL (0.55-1.30); GLOMERULAR FILTRATION RATE > 60.0 (>58); GLUCOSE, FASTING 246 MG/DL (70-100); SODIUM LEVEL 137 MEQ/L (136-145); TOTAL PROTEIN 6.2 GM/DL (6.4-8.2)
[2022-01-04] MEDS ORDERED: HumuLIN R (REGULAR) INSULIN (NovoLIN R) **100U/ML** PER UNIT SC ONE (21:20)
[2022-01-05] VITALS: BP 119/70
== END 2022-01-05 00:26 | disposition home or self-care (01) ==
LOC: M ED 18:12
DX: E11.65 Type 2 diabetes mellitus with hyperglycemia (principal); R53.1 Weakness; I10 Essential (primary) hypertension; Z86.73 Personal history of transient ischemic attack (TIA), and cerebral infarction without residual deficits; J44.9 Chronic obstructive pulmonary disease, unspecified; K21.9 Gastro-esophageal reflux disease without esophagitis; F17.200 Nicotine dependence, unspecified, uncomplicated; Z82.3 Family history of stroke; Z79.4 Long term (current) use of insulin; Z79.899 Other long term (current) drug therapy; Z91.89 Other specified personal risk factors, not elsewhere classified; Z88.8 Allergy status to other drugs, medicaments and biological substances; Z88.5 Allergy status to narcotic agent; Z91.030 Bee allergy status
CPT/HCPCS: 70450; 71045; 80047; 80053; 81001; 85025; 93005; 99285; J1815

== ENCOUNTER 2022-02-01 18:45 | Emergency (ER) | payer OTHER ==
[~2022-02-01] VITALS: Ht 154.9 cm; Wt 58.2 kg
[2022-02-01] MEDS ORDERED: traMADol 50 MG TAB PO ONE (21:40)
[2022-02-01] MEDS ORDERED: ULTR50TA8 PO (21:41)
[2022-02-01 21:54] VITALS: BP 108/66
== END 2022-02-01 21:56 | disposition home or self-care (01) ==
LOC: M ED 18:45
DX: M67.833 Other specified disorders of tendon, right wrist (principal); I25.2 Old myocardial infarction; E11.9 Type 2 diabetes mellitus without complications; I11.0 Hypertensive heart disease with heart failure; E78.00 Pure hypercholesterolemia, unspecified; K21.9 Gastro-esophageal reflux disease without esophagitis; M54.50 Low back pain, unspecified; J45.909 Unspecified asthma, uncomplicated; F90.9 Attention-deficit hyperactivity disorder, unspecified type; F43.10 Post-traumatic stress disorder, unspecified; F41.9 Anxiety disorder, unspecified; F32.9 Major depressive disorder, single episode, unspecified; Z86.2 Personal history of diseases of the blood and blood-forming organs and certain disorders involving the immune mechanism; Z87.440 Personal history of urinary (tract) infections; Z87.442 Personal history of urinary calculi; Z87.01 Personal history of pneumonia (recurrent); Z87.891 Personal history of nicotine dependence; Z86.73 Personal history of transient ischemic attack (TIA), and cerebral infarction without residual deficits; Z95.5 Presence of coronary angioplasty implant and graft; Z95.1 Presence of aortocoronary bypass graft; Z79.4 Long term (current) use of insulin; Z85.820 Personal history of malignant melanoma of skin; Z79.899 Other long term (current) drug therapy; Z91.030 Bee allergy status; Z91.89 Other specified personal risk factors, not elsewhere classified; Z88.8 Allergy status to other drugs, medicaments and biological substances; Z88.5 Allergy status to narcotic agent; I50.9 Heart failure, unspecified

== ENCOUNTER → 2022-02-25 | Outpatient (CLI) | payer OTHER, MEDICAID ==
[~2022-02-25] MED LIST changes: +ULTR50TA8 PO
== END ==
LOC: M PAIN 08:30
PROVIDERS: ATTEND Nurse Practitioner Family
DX: M51.16 Intervertebral disc disorders with radiculopathy, lumbar region (principal); E11.40 Type 2 diabetes mellitus with diabetic neuropathy, unspecified; I25.2 Old myocardial infarction; J44.9 Chronic obstructive pulmonary disease, unspecified; K21.9 Gastro-esophageal reflux disease without esophagitis; G43.909 Migraine, unspecified, not intractable, without status migrainosus; Z86.59 Personal history of other mental and behavioral disorders; Z86.73 Personal history of transient ischemic attack (TIA), and cerebral infarction without residual deficits; Z87.891 Personal history of nicotine dependence; Z88.5 Allergy status to narcotic agent; Z88.6 Allergy status to analgesic agent; Z91.09 Other allergy status, other than to drugs and biological substances; Z79.4 Long term (current) use of insulin; Z79.51 Long term (current) use of inhaled steroids; Z79.899 Other long term (current) drug therapy

== ENCOUNTER → 2022-04-19 | Outpatient (CLI) | payer OTHER | LOC: M WHC 13:24 | PROVIDERS: ATTEND Physician Assistant | DX: Z12.31 Encounter for screening mammogram for malignant neoplasm of breast (principal) ==

== ENCOUNTER 2022-05-25 11:46 | Emergency (ER) | payer OTHER ==
[~2022-05-25] VITALS: Ht 154.9 cm; Wt 60.9 kg
[2022-05-25] MEDS ORDERED: AUGMENTIN 875 MG TAB PO ONE (13:20)
[2022-05-25] MEDS ORDERED: AMOX875T2 PO (13:23)
[2022-05-25 13:29] VITALS: BP 103/58
== END 2022-05-25 13:48 | disposition home or self-care (01) ==
LOC: M ED 11:46
DX: M25.571 Pain in right ankle and joints of right foot (principal); W55.03XA Scratched by cat, initial encounter; I11.0 Hypertensive heart disease with heart failure; I50.9 Heart failure, unspecified; E11.9 Type 2 diabetes mellitus without complications; E78.5 Hyperlipidemia, unspecified; J44.9 Chronic obstructive pulmonary disease, unspecified; I25.2 Old myocardial infarction; Z86.73 Personal history of transient ischemic attack (TIA), and cerebral infarction without residual deficits; Z79.51 Long term (current) use of inhaled steroids; Z79.4 Long term (current) use of insulin; Z79.899 Other long term (current) drug therapy

== ENCOUNTER 2023-04-21 10:12 | Emergency (ER) | payer OTHER ==
[~2023-04-21] VITALS: Ht 154.9 cm; Wt 56.8 kg
[~2023-04-21 10:12] MED LIST changes: +AMOX875T2 PO; -GABA-283 PO; +GABA-284 PO; -K-TA10TA2 PO; +MECL-209 PO; -MECL1TAB31 PO; +POTA-165 PO
[2023-04-21 11:37] LABS: HEMATOCRIT 41.8 % (36.0-47.0); HEMOGLOBIN 14.4 g/dl (12.0-15.5); MEAN CORPUSCULAR HEMOGLOBIN 28.9 pg (27.0-33.0); MEAN CORPUSCULAR HGB CONC 34.4 g/dl (32.0-36.5); MEAN CORPUSCULAR VOLUME 83.8 fl (80.0-96.0); PLATELET COUNT, AUTOMATED 225 10^3/uL (150-450); RED BLOOD COUNT 4.99 10^6/uL (4.00-5.40); WHITE BLOOD COUNT 7.3 10^3/uL (4.0-10.0)
[2023-04-21 11:46] LABS: ERYTHROCYTE SEDIMENTATION RATE 15 mm/hr (0-20)
[2023-04-21 11:57] LABS: C REACTIVE PROTEIN QUANTITATIV < 0.40 MG/DL (<1.0)
[2023-04-21 12:01] LABS: BLOOD UREA NITROGEN 14 MG/DL (9-23); CALCIUM LEVEL 9.5 MG/DL (8.5-10.1); CARBON DIOXIDE LEVEL 29 MMOL/L (20-31); CHLORIDE LEVEL 96 MMOL/L (98-107); CREATININE FOR GFR 0.64 MG/DL (0.55-1.30); GLOMERULAR FILTRATION RATE > 60.0 (>58); GLUCOSE, FASTING 613 MG/DL (60-100); POTASSIUM SERUM 4.9 MMOL/L (3.5-5.1); SODIUM LEVEL 134 MMOL/L (136-145)
[2023-04-21 12:50] LABS: HEMOGLOBIN A1c 12.9 % (4.0-6.0)
[2023-04-21] MEDS ORDERED: AZITHROMYCIN 250MG TABLET PO STA (14:20)
[2023-04-21 15:02] VITALS: BP 115/67; TEMP 97.7; O2SAT 98
[2023-04-21] MEDS ORDERED: AZIT-12 PO (15:07)
== END 2023-04-21 15:26 | disposition left against medical advice (07) ==
LOC: M ED 10:12
DX: A28.1 Cat-scratch disease (principal); W55.03XA Scratched by cat, initial encounter; E11.65 Type 2 diabetes mellitus with hyperglycemia; I10 Essential (primary) hypertension; J44.9 Chronic obstructive pulmonary disease, unspecified; I25.2 Old myocardial infarction; Z86.79 Personal history of other diseases of the circulatory system; Z91.030 Bee allergy status; Z88.6 Allergy status to analgesic agent; Z88.5 Allergy status to narcotic agent; Z79.52 Long term (current) use of systemic steroids; Z79.2 Long term (current) use of antibiotics; Z79.899 Other long term (current) drug therapy; Z53.9 Procedure and treatment not carried out, unspecified reason

== ENCOUNTER → 2023-08-18 | Outpatient (REF) | payer OTHER ==
[~2023-08-18] MED LIST changes: +AZIT-12 PO
[2023-08-18 17:06] LABS: CREATININE, URINE 35.3 MG/DL; MAU/CREAT RATIO 8.4 MCG/MG (0.0-30.0)
== END ==
LOC: M LAB REF 16:17
PROVIDERS: ATTEND Physician Assistant
DX: E11.65 Type 2 diabetes mellitus with hyperglycemia (principal)

== ENCOUNTER 2023-11-08 22:28 | Emergency (ER) | payer OTHER ==
[~2023-11-08] VITALS: Ht 154.9 cm; Wt 60.7 kg
[~2023-11-08 22:28] MED LIST changes: -GLIM1TAB4 PO; +GLIM1TAB84 PO
[2023-11-09 00:47] LABS: BASO # 0.1 10^3/uL (0.0-0.2); BASO % 0.7 % (0.0-1.0); EOS # 0.4 10^3/uL (0.0-0.5); EOS % 5.1 % (0.0-3.0); HEMATOCRIT 38.1 % (36.0-47.0); HEMOGLOBIN 13.3 g/dl (12.0-15.5); LYMPH # 1.9 10^3/uL (1.5-5.0); LYMPH % 26.4 % (24.0-44.0); MEAN CORPUSCULAR HEMOGLOBIN 28.7 pg (27.0-33.0); MEAN CORPUSCULAR HGB CONC 34.9 g/dl (32.0-36.5); MEAN CORPUSCULAR VOLUME 82.3 fl (80.0-96.0); MONO # 0.4 10^3/uL (0.0-0.8); NEUTROPHILS # 4.3 10^3/uL (1.5-8.5); NEUTROPHILS % 61.5 % (36.0-66.0); PLATELET COUNT, AUTOMATED 206 10^3/uL (150-450); RED BLOOD COUNT 4.63 10^6/uL (4.00-5.40)
[2023-11-09 01:09] LABS: ETHYL ALCOHOL (ETHANOL) 0.003 % (0.000-0.010)
[2023-11-09 01:11] LABS: SALICYLATE LEVEL < 3.0 MG/DL (<30)
[2023-11-09 01:13] LABS: ALBUMIN 3.4 G/DL (3.2-5.2); ALKALINE PHOSPHATASE 156 U/L (46-116); ALT/SGPT 20 U/L (7.0-40); AST/SGOT < 8 U/L (<34); BILIRUBIN,DIRECT 0.1 MG/DL (<0.4); BILIRUBIN,TOTAL 0.6 MG/DL (0.3-1.2); BLOOD UREA NITROGEN 14 MG/DL (9-23); CARBON DIOXIDE LEVEL 30 MMOL/L (20-31); CHLORIDE LEVEL 97 MMOL/L (98-107); CREATININE FOR GFR 0.61 MG/DL (0.55-1.30); GLOMERULAR FILTRATION RATE > 60.0 (>51); GLUCOSE, FASTING 577 MG/DL (60-100); POTASSIUM SERUM 3.7 MMOL/L (3.5-5.1); SODIUM LEVEL 133 MMOL/L (136-145); TOTAL PROTEIN 6.2 G/DL (5.7-8.2)
[2023-11-09] MEDS: NS 1,000 ML IV ONE (04:31)
[2023-11-09 05:15] LABS: AMPHETAMINES LEVEL URINE NEGATIVE (NEGATIVE); BARBITURATES URINE NEGATIVE (NEGATIVE); BENZODIAZEPINES URINE NEGATIVE (NEGATIVE); COCAINE METABOLITE URINE NEGATIVE (NEGATIVE); METHADONE URINE NEGATIVE (NEGATIVE)
[2023-11-09 05:16] LABS: CANNABINOIDS URINE NEGATIVE (NEGATIVE); OPIATES URINE NEGATIVE (NEGATIVE); PHENCYCLIDINE URINE NEGATIVE (NEGATIVE)
[2023-11-09 08:15] VITALS: BP 104/57; O2SAT 97
[2023-11-09 08:43] VITALS: TEMP 98.4
== END 2023-11-09 08:45 | disposition home or self-care (01) ==
LOC: M ED 22:28
DX: T50.991A Poisoning by other drugs, medicaments and biological substances, accidental (unintentional), initial encounter (principal); E11.65 Type 2 diabetes mellitus with hyperglycemia; Z79.4 Long term (current) use of insulin; I10 Essential (primary) hypertension; Z79.899 Other long term (current) drug therapy; Z88.6 Allergy status to analgesic agent; Z88.5 Allergy status to narcotic agent; Z91.048 Other nonmedicinal substance allergy status

== ENCOUNTER 2024-03-09 20:22 | Emergency (ER) | payer OTHER ==
[~2024-03-09] VITALS: Ht 154.9 cm; Wt 56.8 kg
[~2024-03-09 20:22] MED LIST changes: +GABA-1172 PO; -GABA-282 PO; +NAPR-1405 PO; -NAPR500T6 PO
[2024-03-09 20:31] VITALS: TEMP 97
[2024-03-09 20:59] LABS: BASO % 0.3 % (0.0-1.0); EOS # 0.2 10^3/uL (0.0-0.5); EOS % 3.6 % (0.0-3.0); HEMATOCRIT 33.5 % (36.0-47.0); HEMOGLOBIN 11.7 g/dl (12.0-15.5); LYMPH # 1.4 10^3/uL (1.5-5.0); LYMPH % 22.2 % (24.0-44.0); MEAN CORPUSCULAR HEMOGLOBIN 29.3 pg (27.0-33.0); MEAN CORPUSCULAR HGB CONC 34.9 g/dl (32.0-36.5); MONO # 0.3 10^3/uL (0.0-0.8); MONO % 5.2 % (2.0-8.0); NEUTROPHILS # 4.2 10^3/uL (1.5-8.5); NEUTROPHILS % 68.5 % (36.0-66.0); PLATELET COUNT, AUTOMATED 196 10^3/uL (150-450); RED BLOOD COUNT 3.99 10^6/uL (4.00-5.40); WHITE BLOOD COUNT 6.1 10^3/uL (4.0-10.0)
[2024-03-09 21:25] LABS: CK-MB VALUE MASS < 1.0 NG/ML (<3.6)
[2024-03-09 21:26] LABS: CPK CREATINE PHOSPHOKINASE 39 U/L (34-145); MB/CK RELATIVE INDEX 2.56 (< OR =4)
[2024-03-09 21:28] LABS: BLOOD UREA NITROGEN 8 MG/DL (9-23); CARBON DIOXIDE LEVEL 28 MMOL/L (20-31); CHLORIDE LEVEL 104 MMOL/L (98-107); CREATININE FOR GFR 0.54 MG/DL (0.55-1.30); GLOMERULAR FILTRATION RATE > 60.0 (>51); GLUCOSE, FASTING 448 MG/DL (60-100); POTASSIUM SERUM 3.4 MMOL/L (3.5-5.1); SODIUM LEVEL 136 MMOL/L (136-145)
[2024-03-09] MEDS ORDERED: ISOVUE-370 76% 100ML VIAL As Ordered ONE (22:10)
[2024-03-09 22:17] LABS: CK-MB VALUE MASS < 1.0 NG/ML (<3.6)
[2024-03-09 22:18] LABS: CPK CREATINE PHOSPHOKINASE 42 U/L (34-145); MB/CK RELATIVE INDEX 2.38 (< OR =4)
[2024-03-09] MEDS: methylPREDNISolone 125MG 2ML VIAL IV ONE (22:38)
[2024-03-09] MEDS: IPRATROPIUM 0.5MG/ALBUTEROL 2.5MG INH SOL UD 3ML (DUONEB) NEB ONE (22:44)
[2024-03-09] MEDS: LEVEMIR (INSULIN DETEMIR) 1 UNITS/0.01ML SC ONE (23:55)
[2024-03-10] MEDS ORDERED: PRED20TA PO (00:37)
[2024-03-10 00:52] VITALS: O2SAT 95
[2024-03-10 01:00] VITALS: BP 108/55
== END 2024-03-10 01:41 | disposition home or self-care (01) ==
LOC: M ED 20:22
DX: J06.9 Acute upper respiratory infection, unspecified (principal); J44.1 Chronic obstructive pulmonary disease with (acute) exacerbation; I25.10 Atherosclerotic heart disease of native coronary artery without angina pectoris; I25.2 Old myocardial infarction; E11.9 Type 2 diabetes mellitus without complications; K21.9 Gastro-esophageal reflux disease without esophagitis; Z86.73 Personal history of transient ischemic attack (TIA), and cerebral infarction without residual deficits; Z95.5 Presence of coronary angioplasty implant and graft; Z95.1 Presence of aortocoronary bypass graft; Z87.891 Personal history of nicotine dependence; Z79.4 Long term (current) use of insulin; Z88.8 Allergy status to other drugs, medicaments and biological substances; Z88.5 Allergy status to narcotic agent; Z79.899 Other long term (current) drug therapy; Z91.030 Bee allergy status; Z91.89 Other specified personal risk factors, not elsewhere classified
CPT/HCPCS: 71045; 71275; 80048; 82550; 82553; 84484; 85025; 87486; 87581; 87633; 87798; 93005; 93041; 94640; 94760; 96374; 99285; J1815; J2919; Q9967

== ENCOUNTER 2024-07-20 05:16 | Emergency (ER) | payer OTHER ==
[~2024-07-20] VITALS: Ht 154.9 cm; Wt 53.2 kg
[2024-07-20] MEDS: ACETAMINOPHEN *IV* 1,000 MG in IV 1 EA IV ONE (08:23)
[2024-07-20 08:28] LABS: BASO % 0.5 % (0.0-1.0); EOS # 0.2 10^3/uL (0.0-0.5); EOS % 4.7 % (0.0-3.0); HEMATOCRIT 34.2 % (36.0-47.0); HEMOGLOBIN 12.1 g/dl (12.0-15.5); LYMPH # 1.1 10^3/uL (1.5-5.0); LYMPH % 25.7 % (24.0-44.0); MEAN CORPUSCULAR HEMOGLOBIN 28.9 pg (27.0-33.0); MEAN CORPUSCULAR HGB CONC 35.4 g/dl (32.0-36.5); MEAN CORPUSCULAR VOLUME 81.8 fl (80.0-96.0); MONO # 0.3 10^3/uL (0.0-0.8); MONO % 6.3 % (2.0-8.0); NEUTROPHILS # 2.7 10^3/uL (1.5-8.5); NEUTROPHILS % 62.6 % (36.0-66.0); PLATELET COUNT, AUTOMATED 183 10^3/uL (150-450); RED BLOOD COUNT 4.18 10^6/uL (4.00-5.40); WHITE BLOOD COUNT 4.3 10^3/uL (4.0-10.0)
[2024-07-20 08:35] LABS: ERYTHROCYTE SEDIMENTATION RATE 39 mm/hr (0-30)
[2024-07-20 08:52] LABS: C REACTIVE PROTEIN QUANTITATIV 7.64 MG/DL (<1.0)
[2024-07-20 09:09] LABS: BLOOD UREA NITROGEN 10 MG/DL (9-23); CALCIUM LEVEL 8.9 MG/DL (8.5-10.1); CARBON DIOXIDE LEVEL 31 MMOL/L (20-31); CHLORIDE LEVEL 96 MMOL/L (98-107); CREATININE FOR GFR 0.46 MG/DL (0.55-1.30); GLOMERULAR FILTRATION RATE > 60.0 (>51); GLUCOSE, FASTING 456 MG/DL (60-100); POTASSIUM SERUM 3.4 MMOL/L (3.5-5.1); SODIUM LEVEL 136 MMOL/L (136-145)
[2024-07-20 09:56] LABS: VENOUS BASE EXCESS 3.2 (-2.0-2.0); VENOUS HCO3 28.6 MMOL/L (23.0-27.0); VENOUS O2 SATURATION 91.8 % (60.0-80.0); VENOUS PARTIAL PRESSURE CO2 47.2 mmHg (38.0-50.0); VENOUS PARTIAL PRESSURE O2 62.4 mmHg (30.0-50.0); VENOUS PH 7.401 UNITS (7.330-7.430); VENOUS STANDARD HCO3 27.2 MMOL/L; VENOUS TOTAL CO2 30.1 MMOL/L (24.0-28.0)
[2024-07-20 10:26] LABS: ACETONE/KETONE 0.27 MMOL/L (0.02-0.27); ALBUMIN 3.1 G/DL (3.2-5.2); BILIRUBIN,DIRECT 0.2 MG/DL (<0.4); BILIRUBIN,TOTAL 0.6 MG/DL (0.3-1.2); TOTAL PROTEIN 6.1 G/DL (5.7-8.2)
[2024-07-20] MEDS: INSULIN LISPRO (NovoLOG) PER UNIT SC ONE (10:32)
[2024-07-20] MEDS: HumuLIN R (REGULAR) INSULIN (NovoLIN R) **100U/ML** PER UNIT IV ONE (10:32)
[2024-07-20] MEDS ORDERED: TRUL10IN SC (10:52)
[2024-07-20] MEDS ORDERED: SPIR-10 PO (10:52)
[2024-07-20] MEDS ORDERED: OMEG10002 PO (10:52)
[2024-07-20] MEDS ORDERED: GABA-1490 PO (10:52)
[2024-07-20] MEDS ORDERED: ENTR1TAB7 PO (10:52)
[2024-07-20] MEDS ORDERED: PRED20TA PO (10:52)
[2024-07-20] MEDS ORDERED: POTA-149 PO (10:52)
[2024-07-20 10:53] LABS: HEMOGLOBIN A1c 12.7 % (4.0-6.0)
[2024-07-20] MEDS ORDERED: HOME MED LIST COMPLETE! XX SCH (10:55)
[2024-07-20 11:27] LABS: KETONE, URINE AUTO RFX NEGATIVE (NEGATIVE); NITRITE, URINE AUTO RFX NEGATIVE (NEGATIVE); RBC, URINE AUTO RFX 0 /HPF (0-3); SQUAM EPITHELIAL CELL UR AURFX 0 /HPF (0-6); WBC, URINE AUTO RFX 2 /HPF (0-3)
[2024-07-20 11:34] LABS: LEUKOCYTE ESTERASE UR AUTO RFX TRACE (NEGATIVE)
[2024-07-20] MEDS: NS (Normal Saline) 0.9% 1,000 ML IV ONE (11:42)
[2024-07-20] MEDS: fentaNYL 100 MCG/2 ML INJECTION IV ONE (11:43)
[2024-07-20] MEDS ORDERED: HumuLIN R (REGULAR) INSULIN (NovoLIN R) **100U/ML** PER UNIT IV ONE (12:30)
[2024-07-20] MEDS: DALBAVANCIN 1,500 MG in D5W 250 ML IV ONE (13:23)
[2024-07-20 14:00] VITALS: BP 101/61; TEMP 97.1; O2SAT 95
[2024-07-20] MEDS ORDERED: LANTINJ4 SC (14:11)
[2024-07-20] MEDS ORDERED: CIPR-249 PO (14:11)
== END 2024-07-20 14:26 | disposition home or self-care (01) ==
LOC: M ED 05:16
DX: L03.115 Cellulitis of right lower limb (principal); E11.40 Type 2 diabetes mellitus with diabetic neuropathy, unspecified; I10 Essential (primary) hypertension; K21.9 Gastro-esophageal reflux disease without esophagitis; J44.9 Chronic obstructive pulmonary disease, unspecified; F43.10 Post-traumatic stress disorder, unspecified; F32.A Depression, unspecified; G43.909 Migraine, unspecified, not intractable, without status migrainosus; I25.10 Atherosclerotic heart disease of native coronary artery without angina pectoris; I25.2 Old myocardial infarction; Z86.73 Personal history of transient ischemic attack (TIA), and cerebral infarction without residual deficits; Z85.41 Personal history of malignant neoplasm of cervix uteri; Z85.841 Personal history of malignant neoplasm of brain; Z95.1 Presence of aortocoronary bypass graft; Z79.4 Long term (current) use of insulin; Z79.899 Other long term (current) drug therapy; Z88.5 Allergy status to narcotic agent; Z88.8 Allergy status to other drugs, medicaments and biological substances; Z91.89 Other specified personal risk factors, not elsewhere classified; Z91.030 Bee allergy status
CPT/HCPCS: 73630; 80047; 80048; 80076; 81001; 82010; 82803; 83036; 83690; 83930; 85025; 85652; 86140; 87070; 87077; 87086; 87186; 87205; 93041; 96361; 96365; 96367; 96375; 99285; J0131; J0875; J1815; J3010

== ENCOUNTER → 2024-10-15 | Outpatient (CLI) | payer OTHER ==
[~2024-10-15] MED LIST changes: +CIPR-249 PO; +ENTR1TAB7 PO; +GABA-1490 PO; +LANTINJ4 SC; +OMEG10002 PO; +POTA-149 PO; +SPIR-10 PO; +TRUL10IN SC
== END ==
LOC: M RAD 13:53
PROVIDERS: ATTEND Podiatrist Foot & Ankle Surgery
DX: I73.89 Other specified peripheral vascular diseases (principal)

== ENCOUNTER → 2024-10-31 | Outpatient (REF) | payer OTHER ==
[2024-11-01 13:05] LABS: HEMOGLOBIN A1c 11.9 % (4.0-6.0)
== END ==
LOC: M SFHCWOUN 11:34
PROVIDERS: ATTEND Physician Assistant
DX: E11.622 Type 2 diabetes mellitus with other skin ulcer (principal)

== ENCOUNTER → 2025-03-18 | Outpatient (REF) | payer OTHER ==
[2025-03-18 17:15] LABS: ALT/SGPT 20 U/L (7.0-40); AST/SGOT 15 U/L (<34); CALCIUM LEVEL 9.6 MG/DL (8.5-10.1); CARBON DIOXIDE LEVEL 31 MMOL/L (20-31); CHLORIDE LEVEL 95 MMOL/L (98-107); CHOLESTEROL LEVEL 184 MG/DL (<200); CHOLESTEROL RISK RATIO 5.33 (<5); CREATININE FOR GFR 0.70 MG/DL (0.55-1.30); GLOMERULAR FILTRATION RATE > 90.0 (>51); LDL CHOLESTEROL 105.1 MG/DL (<100); NON-HDL-C 149.5 MG/DL; POTASSIUM SERUM 4.1 MMOL/L (3.5-5.1); SODIUM LEVEL 137 MMOL/L (136-145); TRIGLYCERIDES LEVEL 222 MG/DL (<150)
[2025-03-18 17:21] LABS: PLATELET COUNT, AUTOMATED 215 10^3/uL (150-450)
[2025-03-18 17:29] LABS: ESTIMATED AVERAGE GLUCOSE 318.0 MG/DL (60-110)
== END ==
LOC: M LAB REF 16:29
PROVIDERS: ATTEND Pediatrics
DX: E11.65 Type 2 diabetes mellitus with hyperglycemia (principal)